=== PATIENT | female | born 1930 | race Caucasian/White ===

== ENCOUNTER 2017-04-02 04:19 | Inpatient (IN) | payer OTHER, MEDICARE ==
[2017-04-02] VITALS (9 sets, daily range): BP systolic 128–170; BP diastolic 62–86; PULSE 67–107; RESP 18–26; TEMP 97.6–98.8; O2SAT 94–99
[~2017-04-02] VITALS: Ht 154.9 cm; Wt 76.8 kg
[~2017-04-02 04:19] MED LIST: ENAL10TA7 PO; LEVO100T4 PO; MACR100C PO; ZOCO40TA PO
[2017-04-02] MEDS ORDERED: SODIUM CHLOR 0.9% 1000 ML INJ 1,000 ML IV SCH (04:23)
[2017-04-02] MEDS ORDERED: ENAL20TA PO (04:29)
[2017-04-02] MEDS ORDERED: LEVO112T2 PO (04:29)
[2017-04-02] MEDS ORDERED: SIMV40TA PO (04:29)
[2017-04-02] MEDS ORDERED: SODIUM CHLORIDE 0.9% FLUSH 10 ML FLUSH IV FLUSH PRN (04:30)
[2017-04-02] MEDS ORDERED: ONDANSETRON HCL 4 MG/2 ML VIAL IVP ONE (04:30)
[2017-04-02] MEDS ORDERED: MORPHINE SULFATE 8 MG/ML INJ IV PUSH ONE (04:30)
[2017-04-02 04:56] LABS: AUTOMATED NEUTROPHIL # 11.1 TH/MM3 (1.8-7.7); BASOPHIL # 0.1 TH/MM3 (0-0.2); BASOPHIL % 0.6 % (0.0-2.0); EOSINOPHIL # 0.1 TH/MM3 (0-0.4); EOSINOPHIL % 0.9 % (0.0-4.0); HEMATOCRIT 43.3 % (35.0-46.0); HEMO FLAGS DIFF FINAL; LYMPH % 23.5 % (9.0-44.0); LYMPHOCYTE # 3.7 TH/MM3 (1.0-4.8); MEAN CELL VOLUME 85.8 FL (80.0-100.0); MEAN CORPUSCULAR HEMOGLOBIN 28.1 PG (27.0-34.0); MEAN CORPUSCULAR HGB CONC 32.8 % (32.0-36.0); MONO % 4.3 % (0.0-8.0); NEUT % 70.7 % (16.0-70.0); PLATELET COUNT 235 TH/MM3 (150-450); RED BLOOD COUNT 5.05 MIL/MM3 (4.00-5.30); RED CELL DISTRIBUTION WIDTH 13.2 % (11.6-17.2); WHITE BLOOD COUNT 15.7 TH/MM3 (4.0-11.0)
[2017-04-02 04:59] LABS: BACTERIA, URINE RARE /hpf; BLOOD, URINE TRACE (NEG); COMMENT (UR) CATH-CULTURE IND; CULTURE IF INDICATED CATH CULTURE IND; GLUCOSE,URINE NEG (NEG); HYALINE CAST, URINE 115 /lpf (RARE); KETONE, URINE NEG (NEG); MUCUS URINE FEW /lpf (OCC); NITRITE,URINE NEG (NEG); URINE COLOR YELLOW (YELLW/STRAW)
[2017-04-02] MEDS ORDERED: HYDROmorphone HCL PF 1 MG/ML VIAL IV PUSH ONE (05:00)
[2017-04-02 05:10] LABS: ALT (GPT) 20 U/L (10-53); ANION GAP 12 MEQ/L (5-15); AST (GOT) 14 U/L (15-37); BICARBONATE 26.3 MEQ/L (21.0-32.0); BLOOD UREA NITROGEN 20 MG/DL (7-18); CHLORIDE 103 MEQ/L (98-107); GLOMERULAR FILTRATION RATE 54 ML/MIN (>89); POTASSIUM 3.5 MEQ/L (3.5-5.1); SODIUM (NA) 141 MEQ/L (136-145)
[2017-04-02 05:12] LABS: ALKALINE PHOSPHATASE 88 U/L (45-117); TOTAL BILIRUBIN ADULT 0.4 MG/DL (0.2-1.0)
--- NOTE | 2017-04-02 05:17 | PD ---
HPI Chief Complaint: Abdominal Pain Time Seen by Provider: 04:23 Travel History International Travel<30 days: No Contact w/Intl Traveler<30days: No Traveled to known affect area: No History of Present Illness HPI 86-year-old female arrives by EMS complaining of sudden onset abdominal pain. It woke her from sleep. Location lower abdomen. Nausea reported. No vomiting. No fever. It is worse with palpation. No radiation. No similar prior episodes. PFSH Past Medical History Cardiovascular Problems: Yes (HIGH BP) High Cholesterol: Yes Diminished Hearing: Yes Hypertension: Yes Thyroid Disease: Yes Past Surgical History Appendectomy: Yes Genitourinary Surgery: Yes (URETHRA/BLADDER) Hysterectomy: Yes Social History Alcohol Use: Yes (occ) Tobacco Use: No Substance Use: No Allergies-Medications (Allergen,Severity, Reaction): Coded Allergies: atropine (Unverified Allergy, Mild, 04/02/17) cephalexin (Unverified Allergy, Mild, 04/02/17) penicillin G (Unverified Allergy, Mild, 04/02/17) Uncoded Allergies: ANTISPASMODICS (Allergy, Mild, 09/19/06) PROBANATHINE (Allergy, Mild, 09/19/06) Reported Meds & Prescriptions Reported Meds & Active Scripts Active Reported Levothyroxine (Levothyroxine Sodium) 112 Mcg Tab 112 Mcg PO DAILY Simvastatin 40 Mg Tab 40 Mg PO HS Enalapril (Enalapril Maleate) 20 Mg Tab 20 Mg PO BID Review of Systems Except as stated in HPI: all other systems reviewed are Neg General / Constitutional: No: Fever Physical Exam Narrative GENERAL: 86-year-old female pleasant well-nourished well-developed SKIN: Warm and dry. HEAD: Atraumatic. Normocephalic. EYES: Pupils equal and round. No scleral icterus. No injection or drainage. ENT: No nasal bleeding or discharge. Mucous membranes pink and moist. NECK: Trachea midline. No JVD. CARDIOVASCULAR: Regular rate and rhythm. RESPIRATORY: No accessory muscle use. Clear to auscultation. Breath sounds equal bilaterally. GASTROINTESTINAL: Soft. Tenderness palpation lower abdomen. No flank tenderness. MUSCULOSKELETAL: Extremities without clubbing, cyanosis, or edema. No obvious deformities. NEUROLOGICAL: Awake and alert. No obvious cranial nerve deficits. Motor grossly within normal limits. Five out of 5 muscle strength in the arms and legs. Normal speech. PSYCHIATRIC: Appropriate mood and affect; insight and judgment normal. Data Data Last Documented VS Vital Signs Date Time Temp Pulse Resp B/P (MAP) Pulse Ox O2 Delivery O2 Flow Rate FiO2 04/02/17 04:27 99 Nasal Cannula 2.00 04/02/17 04:22 97.6 67 26 165/77 (106) VS reviewed Orders Orders Complete Blood Count With Diff (04/02/17 04:23) Comprehensive Metabolic Panel (04/02/17 04:23) Lipase (04/02/17 04:23) Urinalysis - C+S If Indicated (04/02/17 04:23) Ct Abd/Pel W Iv Contrast(Rout) (04/02/17 04:23) Iv Access Insert/Monitor (04/02/17 04:23) Ecg Monitoring (04/02/17 04:23) Oximetry (04/02/17 04:23) Ondansetron Inj (Zofran Inj) (04/02/17 04:30) Sodium Chlor 0.9% 1000 Ml Inj (Ns 1000 M (04/02/17 04:23) Sodium Chloride 0.9% Flush (Ns Flush) (04/02/17 04:30) Morphine Inj (Morphine Inj) (04/02/17 04:30) Hydromorphone Pf Inj (Dilaudid Pf Inj) (04/02/17 05:00) Urine Culture (04/02/17 04:30) Iohexol 350 Inj (Omnipaque 350 Inj) (04/02/17 05:29) Levofloxacin 750 Mg Premix Inj (Levaquin (04/02/17 06:15) Ciprofloxacin 400 Mg Premix (Cipro 400 M (04/02/17 06:15) Metronidazole 500 Mg Inj (Flagyl 500 Mg (04/02/17 06:15) Admit Order (Ed Use Only) (04/02/17 06:16) Labs Laboratory Tests Test 04/02/17 04:30 White Blood Count 15.7 TH/MM3 Red Blood Count 5.05 MIL/MM3 Hemoglobin 14.2 GM/DL Hematocrit 43.3 % Mean Corpuscular Volume 85.8 FL Mean Corpuscular Hemoglobin 28.1 PG Mean Corpuscular Hemoglobin Concent 32.8 % Red Cell Distribution Width 13.2 % Platelet Count 235 TH/MM3 Mean Platelet Volume 9.2 FL Neutrophils (%) (Auto) 70.7 % Lymphocytes (%) (Auto) 23.5 % Monocytes (%) (Auto) 4.3 % Eosinophils (%) (Auto) 0.9 % Basophils (%) (Auto) 0.6 % Neutrophils # (Auto) 11.1 TH/MM3 Lymphocytes # (Auto) 3.7 TH/MM3 Monocytes # (Auto) 0.7 TH/MM3 Eosinophils # (Auto) 0.1 TH/MM3 Basophils # (Auto) 0.1 TH/MM3 CBC Comment DIFF FINAL Differential Comment Urine Color YELLOW Urine Turbidity HAZY Urine pH 5.0 Urine Specific [place] 1.025 Urine Protein TRACE mg/dL Urine Glucose (UA) NEG mg/dL Urine Ketones NEG mg/dL Urine Occult Blood TRACE Urine Nitrite NEG Urine Bilirubin NEG Urine Urobilinogen LESS THAN 2.0 MG/DL Urine Leukocyte Esterase NEG Urine RBC 2 /hpf Urine WBC 1 /hpf Urine Bacteria RARE /hpf Urine Hyaline Casts 115 /lpf Urine Mucus FEW /lpf Microscopic Urinalysis Comment CATH-CULTURE IND Blood Urea Nitrogen 20 MG/DL Creatinine 0.98 MG/DL Random Glucose 199 MG/DL Total Protein 7.0 GM/DL Albumin 3.9 GM/DL Calcium Level 9.7 MG/DL Alkaline Phosphatase 88 U/L Aspartate Amino Transf (AST/SGOT) 14 U/L Alanine Aminotransferase (ALT/SGPT) 20 U/L Total Bilirubin 0.4 MG/DL Sodium Level 141 MEQ/L Potassium Level 3.5 MEQ/L Chloride Level 103 MEQ/L Carbon Dioxide Level 26.3 MEQ/L Anion Gap 12 MEQ/L Estimat Glomerular Filtration Rate 54 ML/MIN Lipase 139 U/L [facility] Medical Decision Making Medical Screen Exam Complete: Yes Emergency Medical Condition: Yes Differential Diagnosis Constipation, Gastritis, Acute Cholecystitis, Biliary Colic, Pancreatitis, COATS , Hepatitis, Bowel Obstruction, Cystitis, Mesenteric Ischemia, AAA, Appendicitis , Renal Stone/Hydronephrosis, GERD, perforated viscous Narrative Course CBC & BMP Diagram 04/02/17 04:30 Total Protein 7.0, Albumin 3.9, Calcium Level 9.7, Alkaline Phosphatase 88, Aspartate Amino Transf (AST/SGOT) 14 L, Alanine Aminotransferase (ALT/SGPT) 20, Total Bilirubin 0.4 UA: rare bacteria Last 24 hours Impressions Abdomen/Pelvis CT 04/02/17 0423 Signed Impressions: Service Date/Time: Sunday, April 02, 2017 05:28 - CONCLUSION: Several abnormally thickened loops of small bowel in the right lower quadrant with fat stranding and small amount of free fluid. Differential diagnosis includes enteritis from infection, inflammatory bowel disease or ischemia. No free air. Efra Martin MD Admission for enteritis, D/w Dr Villarreal. Diagnosis Primary Impression: Enteritis Admitting Information Admitting Physician Requests: Admit Siva Anders MD Apr 02, 2017 05:17
[2017-04-02] MEDS ORDERED: IOHEXOL 350 MG/ML 10 ML VIAL (for RAD DIAG) IVCONTRAST ONE (05:29)
--- NOTE | 2017-04-02 06:05 | RADRPT ---
EXAM DATE/TIME: 04/02/2017 05:28 [place] COMPARISON: No previous studies available for comparison. INDICATIONS : Diffuse abdominal pain and nausea. IV CONTRAST: 95 cc Omnipaque 350 (iohexol) IV ORAL CONTRAST: No oral contrast ingested. RADIATION DOSE: 9.26 CTDIvol (mGy) MEDICAL HISTORY : Hypertension. SURGICAL HISTORY : Appendectomy. Hysterectomy. ENCOUNTER: Initial ACUITY: 1 day PAIN SCALE: 8/10 LOCATION: Bilateral abdomen TECHNIQUE: Volumetric scanning of the abdomen and pelvis was performed. Using automated exposure control and ad justment of the mA and/or kV according to patient size, radiation dose was kept as low as reasonably achievable to obtain optimal diagnostic quality images. DICOM format image data is available electro nically for review and comparison. FINDINGS: Lung bases are clear. There are several abnormally thickened loops of small bowel in the right lower quadrant with periente sandy stranding of fat and small amount of free fluid in the lower abdomen and pelvis. Findings are non specific. Differential diagnosis includes enteritis, from infection or inflammatory bowel disease or ischemia. Liver unremarkable except for tiny cyst anteriorly. Spleen, adrenals, kidneys and pancreas demonstrat e no acute findings. No calcified gallstones or biliary ductal dilatation. No acute bony abnormalitie s. CONCLUSION: Several abnormally thickened loops of small bowel in the right lower quadrant with fat stranding and small amount of free fluid. Differential diagnosis includes enteritis from infection, inflammatory flako wel disease or ischemia. No free air. Efra Martin MD on April 02, 2017 at 5:43 Board Certified Radiologist. This report was verified electronically.
[2017-04-02] MEDS ORDERED: metroNIDAZOLE 500 MG INJ 100 ML IV ONE (06:15)
[2017-04-02] MEDS ORDERED: LEVOFLOXACIN 750 MG PREMIX INJ 150 ML IV ONE (06:15)
[2017-04-02] MEDS ORDERED: CIPROFLOXACIN 400 MG PREMIX 200 ML IV ONE (06:15)
[2017-04-02] MEDS: SODIUM CHLOR 0.9% 1000 ML INJ 1,000 ML IV SCH ×2 (06:29→16:20)
[2017-04-02] MEDS ORDERED: MAGNESIUM HYDROXIDE SUSP 30 ML CUP PO PRN (06:30)
[2017-04-02] MEDS ORDERED: LACTULOSE SYRUP 20 GM/30 ML CUP PO PRN (06:30)
[2017-04-02] MEDS ORDERED: SENNOSIDES 8.6 MG TAB PO PRN (06:30)
[2017-04-02] MEDS ORDERED: BISACODYL 10 MG SUPP RECTAL PRN (06:30)
[2017-04-02] MEDS ORDERED: ACETAMINOPHEN 325 MG TAB PO PRN (06:30)
[2017-04-02] MEDS: SODIUM CHLORIDE 0.9% FLUSH 10 ML FLUSH IV FLUSH SCH ×2 (09:00→21:00)
[2017-04-02] MEDS: DOCUSATE SODIUM 50 MG/SENNA 8.6 MG TAB PO SCH ×2 (09:00→21:20)
[2017-04-02] MEDS: ONDANSETRON HCL 4 MG/2 ML VIAL IVP PRN ×2 (12:04→18:00)
[2017-04-02] MEDS: metroNIDAZOLE 500 MG INJ 100 ML IV SCH ×2 (14:08→22:45)
--- NOTE | 2017-04-02 14:21 | HHI.HP ---
HPI Service [facility] Hospitalists Primary Care Physician Unknown Admission Diagnosis Enteritis Diagnoses: Chief Complaint: Abdominal pain Nausea Travel History International Travel<30 Days: No Contact w/Intl Traveler <30 Da: No Traveled to Known Affected Are: No History of Present Illness Written by Leny Mckeon PA-C acting as scribe for Dr. Franklin on 04/02/17 at 14 :13. This is an 86 yo female with PMHX significant for HTN, HLD, Hypothyroidism and Glaucoma who presents to [facility] ED with complaints of sudden onset of severe "20/10" abdominal pain with associated nausea for 1 day. Patient reports eating "junk food" all day yesterday and waking up at 1:30am with her "stomach on fire" that continued to progress prompting her to come into the ED. She tried taking some Tums and Excedrin at home without any benefit. She denies any vomiting but states she was gagging a lot. She denies any fever or chills. She denies any chest pain or shortness of breath. She denies any diarrhea or constipation. She reports prior colonoscopy 12 years ago with polypectomy x 2. She was started on Cipro and Metronidazole in the ED. She reports her abdominal pain is 2/10 now. She has not had any appetite. She denies any dysuria but reports frequent incontinence. In the ED, CT abd/pelvis obtained in the ED showed several abnormally thickened loops of small bowel in the right lower quadrant with fat stranding and small amount of free fluid. She is afebrile. Her white count was elevated at 15.7. UA is suggestive of a urinary tract infection. LFTs and lipase within normal limits. Review of Systems Except as stated in HPI: all other systems reviewed are Neg Past Family Social History Past Medical History Hypertension HLD Hypothyroidism Glaucoma Past Surgical History Appendectomy Removal of urethral "node" Hysterectomy Benign breast bx x 2 Reported Medications Levothyroxine (Levothyroxine Sodium) 112 Mcg Tab 112 Mcg PO DAILY Simvastatin 40 Mg Tab 40 Mg PO HS Enalapril (Enalapril Maleate) 20 Mg Tab 20 Mg PO BID Allergies: Coded Allergies: atropine (Unverified Allergy, Mild, 04/02/17) cephalexin (Unverified Allergy, Mild, 04/02/17) penicillin G (Unverified Allergy, Mild, 04/02/17) Uncoded Allergies: ANTISPASMODICS (Allergy, Mild, 09/19/06) PROBANATHINE (Allergy, Mild, 09/19/06) Active Ordered Medications Current Medications Medications (Trade) Dose Ordered Sig/Aditi Route Start Time Stop Time Status Last Admin Ciprofloxacin/ Dextrose 200 ml @ 200 mls/hr Q12H IV 04/02/17 18:00 Metronidazole 100 ml @ 100 mls/hr Q8H IV 04/02/17 14:00 04/02/17 14:08 Sodium Chloride 1,000 ml @ 100 mls/hr Q10H IV 04/02/17 06:20 04/02/17 06:29 (NS Flush) 2 ml UNSCH PRN IV FLUSH 04/02/17 06:30 (NS Flush) 2 ml BID IV FLUSH 04/02/17 09:00 04/02/17 09:00 (Zofran Inj) 4 mg Q6H PRN IVP 04/02/17 06:30 04/02/17 12:04 (Tylenol) 650 mg Q6H PRN PO 04/02/17 06:30 (Morphine Inj) 2 mg Q3H PRN IV 04/02/17 06:30 (Roxicodone) 5 mg Q4H PRN PO 04/02/17 06:30 04/02/17 09:40 (Gunjan-Colace) 1 tab BID PO 04/02/17 09:00 (Milk Of Magnesia Liq) 30 ml Q12H PRN PO 04/02/17 06:30 (Senokot) 17.2 mg Q12H PRN PO 04/02/17 06:30 (Dulcolax Supp) 10 mg DAILY PRN RECTAL 04/02/17 06:30 (Lactulose Liq) 30 ml DAILY PRN PO 04/02/17 06:30 Family History Father, CVA, DM, CAD Mother, CVA Social History Patient denies any tobacco use, lifelong nonsmoker. She reports rare EtOH consumption. She denies any illicit drug use. She lives alone and takes care of all of her own ADLs. Physical Exam Vital Signs Vital Signs Date Time Temp Pulse Resp B/P (MAP) Pulse Ox O2 Delivery O2 Flow Rate FiO2 04/02/17 13:12 97.9 89 18 170/70 (103) 97 04/02/17 08:28 84 20 136/86 (103) 96 04/02/17 08:00 97.8 107 18 164/78 (106) 96 04/02/17 07:32 88 18 128/62 (84) 94 Room Air 04/02/17 06:28 76 18 164/75 (104) 96 Room Air 04/02/17 04:27 99 Nasal Cannula 2.00 04/02/17 04:22 97.6 67 26 165/77 (106) 99 Physical Exam GENERAL: This is a well-nourished, well-developed patient, in no apparent distress. Awake and alert. SKIN: No rashes, ecchymoses or lesions. Cool and dry. HEAD: Atraumatic. Normocephalic. No temporal or scalp tenderness. EYES: Pupils equal round and reactive. Extraocular motions intact. No scleral icterus. No injection or drainage. ENT: Nose without drainage. Throat without erythema, tonsillar hypertrophy or exudate. Uvula midline. Airway patent. NECK: Trachea midline. No lymphadenopathy. Supple, nontender, no meningeal signs. CARDIOVASCULAR: Regular rate and rhythm without murmurs RESPIRATORY: Clear to auscultation. Breath sounds equal bilaterally. No wheezes GASTROINTESTINAL: Abdomen soft, nondistended. (+)tenderness to palpation over right lower quadrant and left upper quadrant. No guarding. No rigidity. MUSCULOSKELETAL: Extremities without edema. No calf tenderness. NEUROLOGICAL: Awake and alert. Able to move all extremities. Motor and sensory function grossly intact. Normal speech. Laboratory Laboratory Tests Test 04/02/17 04:30 White Blood Count 15.7 Red Blood Count 5.05 Hemoglobin 14.2 Hematocrit 43.3 Mean Corpuscular Volume 85.8 Mean Corpuscular Hemoglobin 28.1 Mean Corpuscular Hemoglobin Concent 32.8 Red Cell Distribution Width 13.2 Platelet Count 235 Mean Platelet Volume 9.2 Neutrophils (%) (Auto) 70.7 Lymphocytes (%) (Auto) 23.5 Monocytes (%) (Auto) 4.3 Eosinophils (%) (Auto) 0.9 Basophils (%) (Auto) 0.6 Neutrophils # (Auto) 11.1 Lymphocytes # (Auto) 3.7 Monocytes # (Auto) 0.7 Eosinophils # (Auto) 0.1 Basophils # (Auto) 0.1 CBC Comment DIFF FINAL Differential Comment Urine Color YELLOW Urine Turbidity HAZY Urine pH 5.0 Urine Specific [place] 1.025 Urine Protein TRACE Urine Glucose (UA) NEG Urine Ketones NEG Urine Occult Blood TRACE Urine Nitrite NEG Urine Bilirubin NEG Urine Urobilinogen LESS THAN 2.0 Urine Leukocyte Esterase NEG Urine RBC 2 Urine WBC 1 Urine Bacteria RARE Urine Hyaline Casts 115 Urine Mucus FEW Microscopic Urinalysis Comment CATH-CULTURE IND Blood Urea Nitrogen 20 Creatinine 0.98 Random Glucose 199 Total Protein 7.0 Albumin 3.9 Calcium Level 9.7 Alkaline Phosphatase 88 Aspartate Amino Transf (AST/SGOT) 14 Alanine Aminotransferase (ALT/SGPT) 20 Total Bilirubin 0.4 Sodium Level 141 Potassium Level 3.5 Chloride Level 103 Carbon Dioxide Level 26.3 Anion Gap 12 Estimat Glomerular Filtration Rate 54 Lipase 139 Date/Time Source Procedure Growth Status 04/02/17 04:30 Urine Catheterized Urine Urine Culture Pending Received Result Diagram: 04/02/17 0430 04/02/17 0430 Imaging Last Impressions Abdomen/Pelvis CT 04/02/17 0423 Signed Impressions: Service Date/Time: Sunday, April 02, 2017 05:28 - CONCLUSION: Several abnormally thickened loops of small bowel in the right lower quadrant with fat stranding and small amount of free fluid. Differential diagnosis includes enteritis from infection, inflammatory bowel disease or ischemia. No free air. Efra Martin MD Caprini VTE Risk Assessment Caprini VTE Risk Assessment: Mod/High Risk (score >= 2) Caprini Risk Assessment Model Point Value = 1 Point Value = 2 Point Value = 3 Point Value = 5 Age 41-60 Minor surgery BMI > 25 kg/m2 Swollen legs Varicose veins or History of unexplained or recurrent spontaneous Oral contraceptives or hormone replacement Sepsis (< 1 month) Serious lung disease, including pneumonia (< 1 month) Abnormal pulmonary function Acute myocardial infarction Congestive heart failure (< 1 month) History of inflammatory bowel disease Medical patient at bed rest Age 61-74 Arthroscopic surgery Major open surgery (> 45 min) Laparoscopic surgery (> 45 min) Malignancy Confined to bed (> 72 hours) Immobilizing plaster cast Central venous access Age >= 75 History of VTE Family history of VTE Factor V Leiden Prothrombin [id number] Lupus anticoagulant Anticardiolipin antibodies Elevated serum homocysteine Heparin-induced thrombocytopenia Other congenital or acquired thrombophilia Stroke (< 1 month) Elective arthroplasty Hip, pelvis, or leg fracture Acute spinal cord injury (< 1 month) Prophylaxis Regimen Total Risk Factor Score Risk Level Prophylaxis Regimen 0-1 Low Early ambulation 2 Moderate Order ONE of the following: *Sequential Compression Device (SCD) *Heparin 5000 units SQ BID 3-4 Higher Order ONE of the following medications: *Heparin 5000 units SQ TID *Enoxaparin/Lovenox 40 mg SQ daily (WT < 150 kg, CrCl > 30 mL/min) *Enoxaparin/Lovenox 30 mg SQ daily (WT < 150 kg, CrCl > 10-29 mL/min) *Enoxaparin/Lovenox 30 mg SQ BID (WT < 150 kg, CrCl > 30 mL/min) AND/OR *Sequential Compression Device (SCD) 5 or more Highest Order ONE of the following medications: *Heparin 5000 units SQ TID (Preferred with Epidurals) *Enoxaparin/Lovenox 40 mg SQ daily (WT < 150 kg, CrCl > 30 mL/min) *Enoxaparin/Lovenox 30 mg SQ daily (WT < 150 kg, CrCl > 10-29 mL/min) *Enoxaparin/Lovenox 30 mg SQ BID (WT < 150 kg, CrCl > 30 mL/min) AND *Sequential Compression Device (SCD) Assessment and Plan Assessment and Plan 86 yo female with PMHX significant for HTN, HLD, Hypothyroidism and Glaucoma who presents to [facility] ED with complaints of severe "20/10" abdominal pain with associated nausea 1 day. Enteritis - Uncertain etiology - CT abd/pelvis revealed several abnormally thickened loops of small bowel in the right lower quadrant with fat stranding and small amount of free fluid - Patient is afebrile. White count is elevated at 15.7. LFTs and lipase are within normal limits. - Consult GI - Continue on IV Cipro and Metronidazole - Continue pain management - Trial regular diet - Zofran prn nausea UTI - UA suggestive of urinary tract infection - Patient denies any dysuria but admits to incontinence - Currently on IV Cipro - Follow up on final urine culture results Leukocytosis - Secondary to above - On IV antibiotics - Repeat labs in a.m. to monitor trend Hyperglycemia - No reported history of diabetes - Obtain hemoglobin A1c Hypertension - elevated - Resume patient's home dose of Enalapril 20 mg twice a day - hydralazine and vasotec prn Hypothyroidism - Resume patient's home dose of levothyroxine 112 mcg daily - Check TSH level. Dyslipidemia - Resume patient's home dose of simvastatin 40 mg daily DVT prophylaxis - Bilateral SCD/MARYBEL hose This note was transcribed by sushil Mckeon. I, Dr. Salome Franklin personally performed the history, physical exam, and medical decision making; and confirmed the accuracy of the information in the transcribed note. Authenticated by Dr. Salome Franklin on 04/02/17 at 14:13. Discussed Condition With Patient Physician Certification 2 Midnight Certification Type: Admission for Inpatient Services Order for Inpatient Services The services are ordered in accordance with Medicare regulations or non- Medicare payer requirements, as applicable. In the case of services not specified as inpatient-only, they are appropriately provided as inpatient services in accordance with the 2-midnight benchmark. Estimated LOS (days): 2 2 days is the estimated time the patient will need to remain in the hospital, assuming treatment plan goals are met and no additional complications. Post-Hospital Plan: Not yet determined Leny Mckeon Apr 02, 2017 14:21 Salome Franklin MD Apr 02, 2017 16:42
[2017-04-02] MEDS ORDERED: hydrALAZINE HCL 10 MG TAB PO PRN (14:45)
[2017-04-02] MEDS ORDERED: DOCUSATE SODIUM 50 MG/SENNA 8.6 MG TAB PO PRN (14:45)
[2017-04-02] MEDS: ENALAPRIL MALEATE 10 MG TAB PO SCH ×2 (16:21→21:19)
[2017-04-02] MEDS: CIPROFLOXACIN 400 MG PREMIX 200 ML IV SCH (18:47)
--- NOTE | 2017-04-02 20:12 | PD.CONS ---
HPI History of Present Illness This is a 86 year old female patient who had sudden onset of excruciating pain in the lower abdomen and generalized quickly. The pain awakened her from sleep. At first she thought it was heartburn and took tums without relief. She also took some excedrin without relief. She came to the ED after a few hours because the pain was so severe. Pain meds improved her symptoms. The pain is still present now but less so. She has had recurrent vomiting today when she tried to eat. Denies prior similar pains. She denies any blood in stool recently but has had hemorrhoids and passed a little blood from time to time. She had colonoscopy 12 years ago and at that time had a few polyps. She reports having constipation and she has diverticulosis. Does not take laxatives regularly. ROS: No fever, chest pain, SOB, rash. No arm or leg pain. Otherwise complete ros is neg. PFSH Past Medical History Hypertension HLD Hypothyroidism Glaucoma Past Surgical History Appendectomy Removal of urethral "node" Hysterectomy Benign breast bx x 2 Coded Allergies: atropine (Unverified Allergy, Mild, 04/02/17) cephalexin (Unverified Allergy, Mild, 04/02/17) penicillin G (Unverified Allergy, Mild, 04/02/17) Uncoded Allergies: ANTISPASMODICS (Allergy, Mild, 09/19/06) PROBANATHINE (Allergy, Mild, 09/19/06) Medications Current Medications Medications (Trade) Dose Ordered Sig/Aditi Route Start Time Stop Time Status Last Admin Ciprofloxacin/ Dextrose 200 ml @ 200 mls/hr Q12H IV 04/02/17 18:00 04/02/17 18:47 Metronidazole 100 ml @ 100 mls/hr Q8H IV 04/02/17 14:00 04/02/17 14:08 Sodium Chloride 1,000 ml @ 100 mls/hr Q10H IV 04/02/17 06:20 04/02/17 16:20 (NS Flush) 2 ml UNSCH PRN IV FLUSH 04/02/17 06:30 (NS Flush) 2 ml BID IV FLUSH 04/02/17 09:00 04/02/17 09:00 (Zofran Inj) 4 mg Q6H PRN IVP 04/02/17 06:30 04/02/17 18:00 (Tylenol) 650 mg Q6H PRN PO 04/02/17 06:30 (Morphine Inj) 2 mg Q3H PRN IV 04/02/17 06:30 (Roxicodone) 5 mg Q4H PRN PO 04/02/17 06:30 04/02/17 18:47 (Gunjan-Colace) 1 tab BID PO 04/02/17 09:00 (Milk Of Magnesia Liq) 30 ml Q12H PRN PO 04/02/17 06:30 (Senokot) 17.2 mg Q12H PRN PO 04/02/17 06:30 (Dulcolax Supp) 10 mg DAILY PRN RECTAL 04/02/17 06:30 (Lactulose Liq) 30 ml DAILY PRN PO 04/02/17 06:30 (Vasotec) 20 mg BID PO 04/02/17 14:45 04/02/17 16:21 (Synthroid) 112 mcg DAILY@0600 PO 04/03/17 06:00 (Pravachol) 80 mg HS PO 04/02/17 21:00 (Vasotec Inj) 1.25 mg Q6H PRN IV PUSH 04/02/17 14:45 (Apresoline) 10 mg Q6HR PRN PO 04/02/17 14:45 ([place] 5-325 Mg) 1 tab Q4H PRN PO 04/02/17 14:45 ([place] 7.5-325 Mg) 1 tab Q6H PRN PO 04/02/17 14:45 (Gunjan-Colace) 1 tab BID PRN PO 04/02/17 14:45 (Miralax) 17 gm DAILY PO 04/03/17 09:00 Family History Father, CVA, DM, CAD Mother, CVA Social History Patient denies any tobacco use, lifelong nonsmoker. She reports rare EtOH consumption. She denies any illicit drug use. She lives alone and takes care of all of her own ADLs. GI Exam Vitals I&O Vital Signs Date Time Temp Pulse Resp B/P (MAP) Pulse Ox O2 Delivery O2 Flow Rate FiO2 04/02/17 16:00 98.0 76 18 146/72 (96) 97 04/02/17 13:12 97.9 89 18 170/70 (103) 97 04/02/17 08:28 84 20 136/86 (103) 96 9/3/17 08:00 97.8 107 18 164/78 (106) 96 04/02/17 07:32 88 18 128/62 (84) 94 Room Air 04/02/17 06:28 76 18 164/75 (104) 96 Room Air 04/02/17 04:27 99 Nasal Cannula 2.00 04/02/17 04:22 97.6 67 26 165/77 (106) 99 I/O 04/01/17 04/01/17 04/01/17 04/02/17 04/02/17 04/02/17 06:59 14:59 22:59 06:59 14:59 22:59 Intake Total 1000 ml 100 ml 480 ml Balance 1000 ml 100 ml 480 ml Intake Oral 480 ml IV Total 1000 ml 100 ml # Voids 3 # Bowel Movements 0 Imaging I reviewed the CT scan images, there are abnormal loops of small intestine in the lower abdomen with small amount of fluid in the pelvis. There is no apparent obstruction. Laboratory Test 04/02/17 04:30 White Blood Count 15.7 TH/MM3 Red Blood Count 5.05 MIL/MM3 Hemoglobin 14.2 GM/DL Hematocrit 43.3 % Mean Corpuscular Volume 85.8 FL Mean Corpuscular Hemoglobin 28.1 PG Mean Corpuscular Hemoglobin Concent 32.8 % Red Cell Distribution Width 13.2 % Platelet Count 235 TH/MM3 Mean Platelet Volume 9.2 FL Neutrophils (%) (Auto) 70.7 % Lymphocytes (%) (Auto) 23.5 % Monocytes (%) (Auto) 4.3 % Eosinophils (%) (Auto) 0.9 % Basophils (%) (Auto) 0.6 % Neutrophils # (Auto) 11.1 TH/MM3 Lymphocytes # (Auto) 3.7 TH/MM3 Monocytes # (Auto) 0.7 TH/MM3 Eosinophils # (Auto) 0.1 TH/MM3 Basophils # (Auto) 0.1 TH/MM3 CBC Comment DIFF FINAL Differential Comment Urine Color YELLOW Urine Turbidity HAZY Urine pH 5.0 Urine Specific [place] 1.025 Urine Protein TRACE mg/dL Urine Glucose (UA) NEG mg/dL Urine Ketones NEG mg/dL Urine Occult Blood TRACE Urine Nitrite NEG Urine Bilirubin NEG Urine Urobilinogen LESS THAN 2.0 MG/DL Urine Leukocyte Esterase NEG Urine RBC 2 /hpf Urine WBC 1 /hpf Urine Bacteria RARE /hpf Urine Hyaline Casts 115 /lpf Urine Mucus FEW /lpf Microscopic Urinalysis Comment CATH-CULTURE IND Blood Urea Nitrogen 20 MG/DL Creatinine 0.98 MG/DL Random Glucose 199 MG/DL Total Protein 7.0 GM/DL Albumin 3.9 GM/DL Calcium Level 9.7 MG/DL Alkaline Phosphatase 88 U/L Aspartate Amino Transf (AST/SGOT) 14 U/L Alanine Aminotransferase (ALT/SGPT) 20 U/L Total Bilirubin 0.4 MG/DL Sodium Level 141 MEQ/L Potassium Level 3.5 MEQ/L Chloride Level 103 MEQ/L Carbon Dioxide Level 26.3 MEQ/L Anion Gap 12 MEQ/L Estimat Glomerular Filtration Rate 54 ML/MIN Lipase 139 U/L Date/Time Source Procedure Growth Status 04/02/17 04:30 Urine Catheterized Urine Urine Culture Pending Received Physical Examination HEENT: Pupils round and reactive to light; normocephalic; atraumatic; no jaundice. Throat is clear. NECK: Neck is supple, no JVD, no lymphadenopathy. CHEST: Chest is clear to auscultation and percussion. CARDIAC: Regular rate and rhythm with no murmur gallop or rubs. ABDOMEN: Soft, nondistended, mildly tender; no guarding. no hepatosplenomegaly ; bowel sounds are present EXTREMITIES: No clubbing, cyanosis, or edema. SKIN: Normal; no rash; no jaundice. 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 Assessment and Plan Plan Impression: Sudden onset of severe pain suggests ischemia. - Constipation can also cause severe pain but not so long in duration - infection is possible but small bowel infection should cause diarrhea Plan: - Lactate level - D Dimer - If positive patient will need anticoagulation, possible arteriogram. - if negative, patient may need colonscopy in 2 days. - Pain control and hydration. - NPO or clear liquids only. Rad Wharton MD Apr 02, 2017 20:12
[2017-04-02] MEDS: PRAVASTATIN SOD 80 MG TAB PO SCH (21:20)
[2017-04-02] MEDS: HEPARIN SODIUM - SQ 10,000 UNITS/ML VIAL SQ SCH (23:49)
[2017-04-03] MEDS: ACETAMINOPHEN/HYDROcodone 325 MG/5 MG TAB PO PRN ×2 (00:52→05:22)
[2017-04-03] MEDS: SODIUM CHLORIDE 0.9% FLUSH 10 ML FLUSH IV FLUSH PRN ×2 (00:53→21:15)
[2017-04-03] MEDS: ONDANSETRON HCL 4 MG/2 ML VIAL IVP PRN ×3 (00:53→21:15)
[2017-04-03 00:57] VITALS: BP 146/67; PULSE 93; RESP 20; TEMP 98.6; O2SAT 94
[2017-04-03] MEDS: CIPROFLOXACIN 400 MG PREMIX 200 ML IV SCH ×2 (04:46→18:25)
[2017-04-03] MEDS: SODIUM CHLOR 0.9% 1000 ML INJ 1,000 ML IV SCH ×2 (04:48→12:20)
[2017-04-03 05:04] VITALS: BP 152/65; PULSE 83; RESP 20; TEMP 98.6; O2SAT 94
[2017-04-03] MEDS: LEVOTHYROXINE SODIUM 112 MCG TAB PO SCH (05:22)
[2017-04-03] MEDS: HEPARIN SODIUM - SQ 10,000 UNITS/ML VIAL SQ SCH ×3 (05:23→21:00)
[2017-04-03] MEDS: metroNIDAZOLE 500 MG INJ 100 ML IV SCH ×3 (05:24→21:01)
[2017-04-03 08:23] VITALS: BP 139/93; PULSE 80; RESP 18; TEMP 97.8; O2SAT 94
[2017-04-03] MEDS: SODIUM CHLORIDE 0.9% FLUSH 10 ML FLUSH IV FLUSH SCH ×2 (09:00→21:01)
[2017-04-03 09:02] LABS: AUTOMATED NEUTROPHIL # 12.8 TH/MM3 (1.8-7.7); BASOPHIL # 0.1 TH/MM3 (0-0.2); BASOPHIL % 0.7 % (0.0-2.0); EOSINOPHIL % 0.3 % (0.0-4.0); HEMATOCRIT 41.2 % (35.0-46.0); HEMO FLAGS DIFF FINAL; LYMPH % 10.1 % (9.0-44.0); LYMPHOCYTE # 1.6 TH/MM3 (1.0-4.8); MEAN CELL VOLUME 87.3 FL (80.0-100.0); MEAN CORPUSCULAR HEMOGLOBIN 28.8 PG (27.0-34.0); MONO % 6.6 % (0.0-8.0); NEUT % 82.3 % (16.0-70.0); PLATELET COUNT 196 TH/MM3 (150-450); RED BLOOD COUNT 4.72 MIL/MM3 (4.00-5.30); RED CELL DISTRIBUTION WIDTH 13.3 % (11.6-17.2); WHITE BLOOD COUNT 15.6 TH/MM3 (4.0-11.0)
[2017-04-03] MEDS: POLYETHYLENE GLYCOL 17 GM PKG PO SCH (09:21)
[2017-04-03] MEDS: ENALAPRIL MALEATE 10 MG TAB PO SCH ×2 (09:23→21:00)
[2017-04-03] MEDS: DOCUSATE SODIUM 50 MG/SENNA 8.6 MG TAB PO SCH ×2 (09:23→21:01)
[2017-04-03 09:33] LABS: ALKALINE PHOSPHATASE 60 U/L (45-117); ALT (GPT) 18 U/L (10-53); ANION GAP 7 MEQ/L (5-15); AST (GOT) 20 U/L (15-37); BICARBONATE 23.8 MEQ/L (21.0-32.0); BLOOD UREA NITROGEN 16 MG/DL (7-18); CHLORIDE 106 MEQ/L (98-107); GLOMERULAR FILTRATION RATE 101 ML/MIN (>89); POTASSIUM 3.7 MEQ/L (3.5-5.1); SODIUM (NA) 137 MEQ/L (136-145); TOTAL BILIRUBIN ADULT 0.4 MG/DL (0.2-1.0)
[2017-04-03 11:02] LABS: HEMOGLOBIN A1a 1.2 %; HEMOGLOBIN A1b 1.7 %; HEMOGLOBIN Ao 84.4 %; HEMOGLOBIN LA1C 2.4 %; HEMOGLOBIN P3 4.2 %
--- NOTE | 2017-04-03 11:41 | HHI.GIFU ---
Subjective Remarks Pt reports abdominal pain is improved. Not passing any stools, some flatus some nausea and vomiting. Lactic acid is normal. D Dimer is elevated. Pt on VTE prophylaxis with Sub Q heparin. Cause of pain and abnormal small bowel is uncertain. Objective Vitals I&O Vital Signs Date Time Temp Pulse Resp B/P (MAP) Pulse Ox O2 Delivery O2 Flow Rate FiO2 04/03/17 08:23 97.8 80 18 139/93 (108) 94 04/03/17 05:04 98.6 83 20 152/65 (94) 94 04/03/17 00:57 98.6 93 20 146/67 (93) 94 04/02/17 21:14 98.8 98 19 153/72 (99) 94 04/02/17 16:00 98.0 76 18 146/72 (96) 97 04/02/17 13:12 97.9 89 18 170/70 (103) 97 I/O 04/02/17 04/02/17 04/02/17 04/03/17 04/03/17 04/03/17 07:00 15:00 23:00 07:00 15:00 23:00 Intake Total 1000 ml 580 ml Balance 1000 ml 580 ml Intake Oral 480 ml IV Total 1000 ml 100 ml # Voids 3 2 # Bowel Movements 0 Laboratory Laboratory Tests Test 04/02/17 21:00 04/03/17 08:41 D-Dimer Quantitative (PE/DVT) 1.88 Lactic Acid Level 1.4 White Blood Count 15.6 Red Blood Count 4.72 Hemoglobin 13.6 Hematocrit 41.2 Mean Corpuscular Volume 87.3 Mean Corpuscular Hemoglobin 28.8 Mean Corpuscular Hemoglobin Concent 33.0 Red Cell Distribution Width 13.3 Platelet Count 196 Mean Platelet Volume 9.3 Neutrophils (%) (Auto) 82.3 Lymphocytes (%) (Auto) 10.1 Monocytes (%) (Auto) 6.6 Eosinophils (%) (Auto) 0.3 Basophils (%) (Auto) 0.7 Neutrophils # (Auto) 12.8 Lymphocytes # (Auto) 1.6 Monocytes # (Auto) 1.0 Eosinophils # (Auto) 0.0 Basophils # (Auto) 0.1 CBC Comment DIFF FINAL Differential Comment Blood Urea Nitrogen 16 Creatinine 0.57 Random Glucose 110 Total Protein 5.8 Albumin 3.0 Calcium Level 8.8 Alkaline Phosphatase 60 Aspartate Amino Transf (AST/SGOT) 20 Alanine Aminotransferase (ALT/SGPT) 18 Total Bilirubin 0.4 Sodium Level 137 Potassium Level 3.7 Chloride Level 106 Carbon Dioxide Level 23.8 Anion Gap 7 Estimat Glomerular Filtration Rate 101 Hemoglobin A1c 5.6 Date/Time Source Procedure Growth Status 04/02/17 04:30 Urine Catheterized Urine Urine Culture - Preliminary NO GROWTH IN 24 HOURS. Resulted Physical Exam HEENT: Pupils round and reactive to light; normocephalic; atraumatic; no jaundice. Throat is clear. NECK: Neck is supple, no JVD, no lymphadenopathy. CHEST: Chest is clear to auscultation and percussion. CARDIAC: Regular rate and rhythm with no murmur gallop or rubs. ABDOMEN: Soft, nondistended, mildly tender; no hepatosplenomegaly; bowel sounds are present in all four quadrants. EXTREMITIES: No clubbing, cyanosis, or edema. SKIN: Normal; no rash; no jaundice. 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 Assessment and Plan Plan Impression: Sudden onset of severe pain suggests ischemia. - Constipation can also cause severe pain but not so long in duration - infection is possible but small bowel infection should cause diarrhea - Patient is improved a little. Lactic acid is normal but D dimer is elevated Plan: - Continue VTE prophylaxis - supportive measures - Consult general surgery - consider colonoscopy tomorrow or Monday - Pain control and hydration. - NPO or clear liquids only. Rad Wharton MD Apr 03, 2017 11:41
--- NOTE | 2017-04-03 11:47 | HHI.PR ---
Subjective Remarks Follow up on patient with enteritis. Patient seen and examined. Patient reports persistent but improved abdominal pain. Denies any fever or chills. Denies any diarrhea in fact no BM since admission. Tolerating diet. No nausea or vomiting. Objective Vitals Vital Signs Date Time Temp Pulse Resp B/P (MAP) Pulse Ox O2 Delivery O2 Flow Rate FiO2 04/03/17 08:23 97.8 80 18 139/93 (108) 94 04/03/17 05:04 98.6 83 20 152/65 (94) 94 04/03/17 00:57 98.6 93 20 146/67 (93) 94 04/02/17 21:14 98.8 98 19 153/72 (99) 94 04/02/17 16:00 98.0 76 18 146/72 (96) 97 04/02/17 13:12 97.9 89 18 170/70 (103) 97 I/O 04/02/17 04/02/17 04/02/17 04/03/17 04/03/17 04/03/17 07:00 15:00 23:00 07:00 15:00 23:00 Intake Total 1000 ml 580 ml Balance 1000 ml 580 ml Intake Oral 480 ml IV Total 1000 ml 100 ml # Voids 3 2 # Bowel Movements 0 Result Diagram: 04/03/17 0841 04/03/17 0841 Imaging Last Impressions Abdomen/Pelvis CT 04/02/17 0423 Signed Impressions: Service Date/Time: Sunday, April 02, 2017 05:28 - CONCLUSION: Several abnormally thickened loops of small bowel in the right lower quadrant with fat stranding and small amount of free fluid. Differential diagnosis includes enteritis from infection, inflammatory bowel disease or ischemia. No free air. Efra Martin MD Objective Remarks GENERAL: This is a well-nourished, well-developed patient, in no apparent distress. Awake and alert. Sitting up on side of bed. SKIN: No rashes, ecchymoses or lesions. Cool and dry. HEAD: Atraumatic. Normocephalic. EYES: Extraocular motions intact. No scleral icterus. No injection or drainage. ENT: Nose without drainage. Throat without erythema, tonsillar hypertrophy or exudate. Uvula midline. Airway patent. NECK: Trachea midline. Supple. CARDIOVASCULAR: Regular rate and rhythm without murmurs RESPIRATORY: Clear to auscultation. Breath sounds equal bilaterally. No wheezes GASTROINTESTINAL: Abdomen soft, nondistended. (+)diffuse tenderness to palpation. No guarding. No rigidity. MUSCULOSKELETAL: Extremities without edema. No calf tenderness. NEUROLOGICAL: Awake and alert. Able to move all extremities. Motor and sensory function grossly intact. Normal speech. Medications and IVs Current Medications Medications (Trade) Dose Ordered Sig/Aditi Route Start Time Stop Time Status Last Admin Ciprofloxacin/ Dextrose 200 ml @ 200 mls/hr Q12H IV 04/02/17 18:00 04/03/17 04:46 Metronidazole 100 ml @ 100 mls/hr Q8H IV 04/02/17 14:00 04/03/17 05:24 Sodium Chloride 1,000 ml @ 100 mls/hr Q10H IV 04/02/17 06:20 04/03/17 04:48 (NS Flush) 2 ml UNSCH PRN IV FLUSH 04/02/17 06:30 04/03/17 00:53 (NS Flush) 2 ml BID IV FLUSH 04/02/17 09:00 04/02/17 09:00 (Zofran Inj) 4 mg Q6H PRN IVP 04/02/17 06:30 04/03/17 00:53 (Tylenol) 650 mg Q6H PRN PO 04/02/17 06:30 (Morphine Inj) 2 mg Q3H PRN IV 04/02/17 06:30 (Roxicodone) 5 mg Q4H PRN PO 04/02/17 06:30 04/02/17 18:47 (Gunjan-Colace) 1 tab BID PO 04/02/17 09:00 04/03/17 09:23 (Milk Of Magnesia Liq) 30 ml Q12H PRN PO 04/02/17 06:30 (Senokot) 17.2 mg Q12H PRN PO 04/02/17 06:30 (Dulcolax Supp) 10 mg DAILY PRN RECTAL 04/02/17 06:30 (Lactulose Liq) 30 ml DAILY PRN PO 04/02/17 06:30 (Vasotec) 20 mg BID PO 04/02/17 14:45 04/03/17 09:23 (Synthroid) 112 mcg DAILY@0600 PO 04/03/17 06:00 04/03/17 05:22 (Pravachol) 80 mg HS PO 04/02/17 21:00 04/02/17 21:20 (Vasotec Inj) 1.25 mg Q6H PRN IV PUSH 04/02/17 14:45 (Apresoline) 10 mg Q6HR PRN PO 04/02/17 14:45 ([place] 5-325 Mg) 1 tab Q4H PRN PO 04/02/17 14:45 04/03/17 05:22 ([place] 7.5-325 Mg) 1 tab Q6H PRN PO 04/02/17 14:45 (Gunjan-Colace) 1 tab BID PRN PO 04/02/17 14:45 (Miralax) 17 gm DAILY PO 04/03/17 09:00 04/03/17 09:21 (Heparin Inj) 5,000 units Q8HR SQ 04/02/17 23:30 04/03/17 05:23 A/P Assessment and Plan 86 yo female with PMHX significant for HTN, HLD, Hypothyroidism and Glaucoma who presents to [facility] ED with complaints of severe "20/10" abdominal pain with associated nausea 1 day. Enteritis - Uncertain etiology - CT abd/pelvis revealed several abnormally thickened loops of small bowel in the right lower quadrant with fat stranding and small amount of free fluid - Patient is afebrile. White count is elevated at 15.7. LFTs and lipase are within normal limits. - GI following - appreciate their assistance. GI ordered Lactic acid and D Dimer. Lactic acid normal. D dimer elevated, GI considering arteriogram. Will discuss with GI. - Continue on IV Cipro and Metronidazole - Continue pain management - Clear liquid diet. Advance per GI. - Zofran prn nausea UTI - UA suggestive of urinary tract infection - Patient denies any dysuria but admits to incontinence - UCX shows no growth x 24hrs Leukocytosis - Secondary to above - unchanged 15.7 --> 15.6 - On IV antibiotics as above - Repeat labs in a.m. to monitor trend Hyperglycemia - No reported history of diabetes - random glc 199 --> 110 - Hemoglobin A1c 5.6 Hypertension - Continue patient's home dose of Enalapril 20 mg twice a day - hydralazine and vasotec prn - Monitor BP Hypothyroidism - Continue patient's home dose of levothyroxine 112 mcg daily - Check TSH level. Dyslipidemia - Continue patient's home dose of simvastatin 40 mg daily DVT prophylaxis - Bilateral SCD/MARYBEL hose - Heparin sq Discussed with patient and Dr. Franklin Attending Statement The exam, history, and the medical decision-making described in the above note were completed with the assistance of the mid-level provider. I reviewed and agree with the findings presented. I attest that I had a [id number] encounter with the patient on the same day, and personally performed and documented my assessment and findings in the medical record. Pt states that pain is improved but still present. Feels constipated, just took laxative and hopes she will be able to have a BM. abdomen is soft but does have pain on the right lower and left upper quadrant, hypoactive bowel sounds. HR rrr, lungs are clear Abdominal pain: GI following, D-dimer elevated but lactic acid neg. Reviewed note from GI, per their recs, will consult GS. continue DVT proph w heparin. continue cipro/ flagyl. Per GI might need colonoscopy monday or monday Leny Mckeon Apr 03, 2017 11:47 Salome Franklin MD Apr 03, 2017 12:06
[2017-04-03 12:12] VITALS: BP 175/74; PULSE 79; RESP 18; TEMP 98.4; O2SAT 96
[2017-04-03] MEDS: ACETAMINOPHEN/HYDROcodone 325 MG/7.5 MG TAB PO PRN ×2 (12:32→22:05)
[2017-04-03 16:28] VITALS: BP 172/83; PULSE 104; RESP 20; TEMP 98.2; O2SAT 94
--- NOTE | 2017-04-03 17:32 | MB ---
cc: JESSICA SYED M.D. DATE OF CONSULTATION 04/03/2017 Completing the dictation on Anna Corado. Completion is as follows: liver function tests are within normal limits. Glucose is slightly elevated at 110. Other tests are within normal limits. Lactate is 1.4. IMAGING Demonstrates abnormally thickened loops of small bowel in the right lower quadrant with fat stranding, a small amount of free fluid. Possibility includes enteritis, inflammatory bowel disease or ischemia. ASSESSMENT Abdominal pain right lower quadrant likely from either inflammatory bowel disease or infection. Ischemia is unlikely given the patient's essentially normal lactate level and stable vital signs. Her physical exam also does not point to ischemia. I would recommend the patient stay on clear liquids today as she had problems with solid food earlier today. We will follow with you. If GI is planning colonoscopy this would be advisable and potentially the distal ileum could be intubated with the colonoscope for evaluation and determination if the patient has possible Crohn disease. The patient does deny any history of Crohn disease but she is not sure of family history. Jessica Syed MD MAF/KK /3:26 PM /5:20 PM
--- NOTE | 2017-04-03 17:49 | MB ---
cc: JESSICA SYED M.D. DATE OF CONSULTATION 04/03/2017 REASON FOR CONSULTATION Thickened loops of small bowel. HISTORY OF PRESENT ILLNESS The patient is an 86-year-old female with extensive medical history including hypertension, hypercholesterolemia, hypothyroidism and glaucoma who presented to the emergency room with severe abdominal pain. The patient reported a large amount of retching but no vomiting. She denies any change in bowel habits. She had colonoscopy 12 years ago with polypectomy x2. PAST MEDICAL HISTORY Includes: 1. Hypertension. 2. Hypothyroidism. 3. Glaucoma. PAST SURGICAL HISTORY Includes: 1. Appendectomy. 2. Removal of urethral node without swelling. 3. Hysterectomy. 4. Left breast biopsy times two for benign disease. 5. Cataract extraction bilaterally. 6. Surgery for a retinal tear. 7. The patient also reports a previous history of a fracture of left wrist with pins placed. All hardware has been removed. MEDICATIONS Include: 1. Levothyroxine 112 micrograms daily. 2. Simvastatin 40 milligrams p.o. q.h.s. 3. Enalapril 20 milligrams twice a day. ALLERGIES THE PATIENT HAS ALLERGY TO CEPHALEXIN, PENICILLIN-G AND ATROPINE. PHYSICAL EXAMINATION GENERAL: Reveals an obese female in no acute distress. VITAL SIGNS: BP 175/74, pulse 79, respirations 18, temperature 98.4, 96% saturation on room air. HEENT: Sclerae anicteric. CHEST: Clear to auscultation. CARDIOVASCULAR: Exam reveals regular rate and rhythm. ABDOMEN: Soft with some mild tenderness in the right lower quadrant. There are no hernias noted. There is no rebound or guarding. PULSES: Intact. EXTREMITIES: The patient is able to move all four extremities without difficulty. NEUROLOGIC: Exam is nonfocal. LABORATORY DATA Laboratory values demonstrate WBC of 15.6, platelets 196,000. Chemistries are essentially within normal limits except for slightly elevated glucose. Liver function tests are normal as well. ADDENDUM Liver function tests are within normal limits. Glucose is slightly elevated at 110. Other tests are within normal limits. Lactate is 1.4. IMAGING Demonstrates abnormally thickened loops of small bowel in the right lower quadrant with fat stranding, a small amount of free fluid. Possibility includes enteritis, inflammatory bowel disease, obstruction or ischemia. ASSESSMENT Abdominal pain right lower quadrant likely from either inflammatory bowel disease or infection. Ischemia is unlikely given the patient's essentially normal lactate level and stable vital signs. Her physical exam also does not point to ischemia. I would recommend the patient stay on clear liquids today as she had problems with solid food earlier today. We will follow with you. If GI is planning colonoscopy this would be advisable and potentially the distal ileum could be intubated with the colonoscope for evaluation and determination if the patient has possible Crohn disease. The patient does deny any history of Crohn disease but she is not sure of family history. Jessica Syed MD MAF/KK /3:22 PM /11:56 AM [id number]
[2017-04-03 20:00] VITALS: BP 130/63; PULSE 80; RESP 19; TEMP 97.9; O2SAT 94
[2017-04-03] MEDS: PRAVASTATIN SOD 80 MG TAB PO SCH (21:01)
[2017-04-04] VITALS (7 sets, daily range): BP systolic 130–168; BP diastolic 61–75; PULSE 67–110; RESP 17–20; TEMP 98–98.8; O2SAT 93–97
[2017-04-04] MEDS: ONDANSETRON HCL 4 MG/2 ML VIAL IVP PRN ×3 (05:19→21:10)
[2017-04-04] MEDS: LEVOTHYROXINE SODIUM 112 MCG TAB PO SCH (05:20)
[2017-04-04] MEDS: ACETAMINOPHEN/HYDROcodone 325 MG/7.5 MG TAB PO PRN ×2 (05:20→15:17)
[2017-04-04] MEDS: CIPROFLOXACIN 400 MG PREMIX 200 ML IV SCH ×2 (05:20→18:14)
[2017-04-04] MEDS: metroNIDAZOLE 500 MG INJ 100 ML IV SCH ×3 (05:21→21:12)
[2017-04-04] MEDS: SODIUM CHLOR 0.9% 1000 ML INJ 1,000 ML IV SCH ×3 (05:21→18:22)
[2017-04-04] MEDS: HEPARIN SODIUM - SQ 10,000 UNITS/ML VIAL SQ SCH ×3 (05:26→21:10)
[2017-04-04] MEDS: SODIUM CHLORIDE 0.9% FLUSH 10 ML FLUSH IV FLUSH SCH ×2 (08:22→21:00)
[2017-04-04] MEDS: ENALAPRIL MALEATE 10 MG TAB PO SCH ×2 (08:22→21:11)
[2017-04-04] MEDS: POLYETHYLENE GLYCOL 17 GM PKG PO SCH (08:22)
[2017-04-04] MEDS: DOCUSATE SODIUM 50 MG/SENNA 8.6 MG TAB PO SCH (08:22)
[2017-04-04 11:24] LABS: AUTOMATED NEUTROPHIL # 9.3 TH/MM3 (1.8-7.7); BASOPHIL # 0.1 TH/MM3 (0-0.2); BASOPHIL % 0.5 % (0.0-2.0); EOSINOPHIL # 0.1 TH/MM3 (0-0.4); EOSINOPHIL % 0.8 % (0.0-4.0); HEMATOCRIT 39.6 % (35.0-46.0); HEMO FLAGS DIFF FINAL; LYMPH % 9.5 % (9.0-44.0); MEAN CELL VOLUME 86.7 FL (80.0-100.0); MEAN CORPUSCULAR HEMOGLOBIN 28.7 PG (27.0-34.0); MEAN CORPUSCULAR HGB CONC 33.1 % (32.0-36.0); MONO % 4.8 % (0.0-8.0); NEUT % 84.4 % (16.0-70.0); PLATELET COUNT 206 TH/MM3 (150-450); RED BLOOD COUNT 4.57 MIL/MM3 (4.00-5.30); RED CELL DISTRIBUTION WIDTH 13.5 % (11.6-17.2)
[2017-04-04 11:49] LABS: BICARBONATE 26.2 MEQ/L (21.0-32.0); POTASSIUM 3.6 MEQ/L (3.5-5.1)
--- NOTE | 2017-04-04 13:13 | HHI.PR ---
Subjective Remarks Follow-up Enteritis/UTI 04/04/17-patient seen and examined, states she was having some dry heaves last night mom states she is unable to drink the prep for colonoscopy. Son By the Bedside Objective Vitals Vital Signs Date Time Temp Pulse Resp B/P (MAP) Pulse Ox O2 Delivery O2 Flow Rate FiO2 04/04/17 12:15 98.8 86 20 142/64 (90) 93 04/04/17 08:03 98.7 84 20 137/65 (89) 93 04/04/17 04:00 98.8 67 19 130/61 (84) 94 04/04/17 00:00 98.0 88 17 132/62 (85) 94 04/03/17 20:00 97.9 80 19 130/63 (85) 94 04/03/17 16:28 98.2 104 20 172/83 (112) 94 04/03/17 13:32 16 I/O 04/03/17 04/03/17 04/03/17 04/04/17 04/04/17 04/04/17 07:00 15:00 23:00 07:00 15:00 23:00 Intake Total 720 ml 400 ml Balance 720 ml 400 ml Intake Oral 720 ml 400 ml # Voids 2 3 2 # Bowel Movements 0 Result Diagram: 04/04/17 1003 04/04/17 1003 Imaging Last Impressions Abdomen/Pelvis CT 04/02/17 0423 Signed Impressions: Service Date/Time: Sunday, April 02, 2017 05:28 - CONCLUSION: Several abnormally thickened loops of small bowel in the right lower quadrant with fat stranding and small amount of free fluid. Differential diagnosis includes enteritis from infection, inflammatory bowel disease or ischemia. No free air. Efra Martin MD Objective Remarks GENERAL: NAD SKIN: Warm and dry. HEAD: Normocephalic. EYES: No scleral icterus. No injection or drainage. NECK: Supple, trachea midline. No JVD or lymphadenopathy. CARDIOVASCULAR: Regular rate and rhythm without murmurs, gallops, or rubs. RESPIRATORY: Breath sounds equal bilaterally. No accessory muscle use. GASTROINTESTINAL: Abdomen soft, non-tender, nondistended. MUSCULOSKELETAL: No cyanosis, or edema. BACK: Nontender without obvious deformity. No CVA tenderness. A/P Problem List: (1) Enteritis ICD Code: K52.9 - Noninfective gastroenteritis and colitis, unspecified Assessment and Plan 86-year-old female with Enteritis - Uncertain etiology; unlikely ischemic bowel for surgery - CT abd/pelvis revealed several abnormally thickened loops of small bowel in the right lower quadrant with fat stranding and small amount of free fluid - GI following plan to perform colonoscopy within the next 24-48 hrs. hours - Continue on IV Cipro and Metronidazole - Continue pain management - Clear liquid diet. - Zofran prn nausea UTI - UC negative Leukocytosis - Resolved Hyperglycemia - Hemoglobin A1c 5.6 Hypertension - Continue patient's home dose of Enalapril 20 mg twice a day - hydralazine and vasotec prn - Monitor BP Hypothyroidism - Continue patient's home dose of levothyroxine 112 mcg daily Dyslipidemia - Continue patient's home dose of simvastatin 40 mg daily DVT prophylaxis - Bilateral SCD/MARYBEL hose - Heparin sq Jonah Juarez MD Apr 04, 2017 13:13
[2017-04-04] MEDS ORDERED: MAGNESIUM CITRATE SOLN 300 ML BTL PO ONE ×2 (13:30→15:30)
--- NOTE | 2017-04-04 15:11 | HHI.PR ---
Subjective Subjective Notes Resting in bed Concerned about issues at home Objective Vitals/I&O Vital Signs Date Time Temp Pulse Resp B/P (MAP) Pulse Ox O2 Delivery O2 Flow Rate FiO2 04/04/17 12:15 98.8 86 20 142/64 (90) 93 04/02/17 07:32 Room Air 04/02/17 04:27 2.00 Labs Laboratory Tests Test 04/04/17 10:03 White Blood Count 11.0 Red Blood Count 4.57 Hemoglobin 13.1 Hematocrit 39.6 Mean Corpuscular Volume 86.7 Mean Corpuscular Hemoglobin 28.7 Mean Corpuscular Hemoglobin Concent 33.1 Red Cell Distribution Width 13.5 Platelet Count 206 Mean Platelet Volume 9.1 Neutrophils (%) (Auto) 84.4 Lymphocytes (%) (Auto) 9.5 Monocytes (%) (Auto) 4.8 Eosinophils (%) (Auto) 0.8 Basophils (%) (Auto) 0.5 Neutrophils # (Auto) 9.3 Lymphocytes # (Auto) 1.0 Monocytes # (Auto) 0.5 Eosinophils # (Auto) 0.1 Basophils # (Auto) 0.1 CBC Comment DIFF FINAL Differential Comment Blood Urea Nitrogen 12 Creatinine 0.64 Random Glucose 135 Calcium Level 8.4 Sodium Level 142 Potassium Level 3.6 Chloride Level 109 Carbon Dioxide Level 26.2 Anion Gap 7 Estimat Glomerular Filtration Rate 88 Date/Time Source Procedure Growth Status 04/02/17 04:30 Urine Catheterized Urine Urine Culture - Final NO GROWTH IN 48 HOURS. Complete Cardiovascular: Regular Lungs: Clear Abdomen: Other (non distended; minimally tender to palpation ) Extremities: No edema A/P Assessment and Plan 86 year old female with abdominal pain -GI planning colonoscopy tomorrow -Clear liquids; NPO after MN -No surgical issues at this time -Will follow results of colonoscopy Attending Note - Dr. Syed Abdomen remains distended; Crohn's vs. infectious vs. obstruction Await colonoscopy results; hopefully can intubate ileum The exam, history, and the medical decision-making described in the above note were completed with the assistance of the mid-level provider. I reviewed and agree with the findings presented. I attest that I had a [id number] encounter with the patient on the same day, and personally performed and documented my assessment and findings in the medical record. Sindy Bernal Apr 04, 2017 15:11 Nsetor Syed MD Apr 05, 2017 16:30
--- NOTE | 2017-04-04 16:56 | HHI.GIFU ---
Subjective Remarks Sitting up on side of bed. States she was feeling fine until she started the bowel prep for egd/colonoscopy and is now having nausea- small amount of clear emesis, mid abdominal pain. Had one bottle of magnesium citrate, states she is unsure if she can drink the other. Encouraged patient to take a break and maybe take the second bottle in a few hours- she will consider this but states she may not want to proceed with egd/colonoscopy- depending on how she is feeling later in day. Objective Vitals I&O Vital Signs Date Time Temp Pulse Resp B/P (MAP) Pulse Ox O2 Delivery O2 Flow Rate FiO2 04/04/17 16:36 98.7 91 20 165/74 (104) 97 04/04/17 12:15 98.8 86 20 142/64 (90) 93 04/04/17 08:03 98.7 84 20 137/65 (89) 93 04/04/17 04:00 98.8 67 19 130/61 (84) 94 04/04/17 00:00 98.0 88 17 132/62 (85) 94 04/03/17 20:00 97.9 80 19 130/63 (85) 94 I/O 04/03/17 04/03/17 04/03/17 04/04/17 04/04/17 04/04/17 07:00 15:00 23:00 07:00 15:00 23:00 Intake Total 720 ml 400 ml 600 ml Balance 720 ml 400 ml 600 ml Intake Oral 720 ml 400 ml 600 ml # Voids 2 3 2 2 # Bowel Movements 0 Laboratory Laboratory Tests Test 04/04/17 10:03 White Blood Count 11.0 Red Blood Count 4.57 Hemoglobin 13.1 Hematocrit 39.6 Mean Corpuscular Volume 86.7 Mean Corpuscular Hemoglobin 28.7 Mean Corpuscular Hemoglobin Concent 33.1 Red Cell Distribution Width 13.5 Platelet Count 206 Mean Platelet Volume 9.1 Neutrophils (%) (Auto) 84.4 Lymphocytes (%) (Auto) 9.5 Monocytes (%) (Auto) 4.8 Eosinophils (%) (Auto) 0.8 Basophils (%) (Auto) 0.5 Neutrophils # (Auto) 9.3 Lymphocytes # (Auto) 1.0 Monocytes # (Auto) 0.5 Eosinophils # (Auto) 0.1 Basophils # (Auto) 0.1 CBC Comment DIFF FINAL Differential Comment Blood Urea Nitrogen 12 Creatinine 0.64 Random Glucose 135 Calcium Level 8.4 Sodium Level 142 Potassium Level 3.6 Chloride Level 109 Carbon Dioxide Level 26.2 Anion Gap 7 Estimat Glomerular Filtration Rate 88 Date/Time Source Procedure Growth Status 04/02/17 04:30 Urine Catheterized Urine Urine Culture - Final NO GROWTH IN 48 HOURS. Complete Imaging Last Impressions Abdomen/Pelvis CT 04/02/17 0423 Signed Impressions: Service Date/Time: Sunday, April 02, 2017 05:28 - CONCLUSION: Several abnormally thickened loops of small bowel in the right lower quadrant with fat stranding and small amount of free fluid. Differential diagnosis includes enteritis from infection, inflammatory bowel disease or ischemia. No free air. Efra Martin MD Physical Exam HEENT: Normocephalic; atraumatic; no jaundice. CHEST: CTA CARDIAC: RRR. ABDOMEN: Soft, nondistended, mildly tender; no hepatosplenomegaly; bowel sounds are present in all four quadrants. EXTREMITIES: No clubbing, cyanosis, or edema. SKIN: Normal; no rash; no jaundice. GROMMET WORKER: No focal deficits; alert and oriented times three. Assessment and Plan Plan Impression: - Abdominal pain. CT Scan abdomen and pelvis (04/02/17)----> Several abnormally thickened loops of small bowel in the right lower quadrant with fat stranding adn small amount of free fluid. Differential diagnosis includes enteritis from infection, inflammatory bowel disease or ischemia. No free air. Unclear etiology at this time, ? ischemia vs. constipation, infectious. Plan is for Colonoscopy in am- however, pt is having a hard time with bowel prep, states she was feeling better until she took a bottle of the mag. citrate- will take a break and try to complete the second bottle later in the evening, but is unsure if she will want to proceed with procedure if she continues to have n/v/pain with bowel prep. WBC improved, 11.0. Cipro, Flagyl. S/P surgical evaluation- no surgical intervention at this time. - Leukocytosis, Improved. Cipro/Flagyl. Plan: - Possible colonoscopy in am if patient agreeable - Clear liquids - NPO after MN - Magnesium citrate prep - Hold heparin after MN - Monitor labs - Supportive care - Further recommendations to follow based on results of above - Pt seen and examined by Dr. Wharton and myself and this note is written on his behalf Gudelia Lynne Apr 04, 2017 16:56
[2017-04-04] MEDS: MORPHINE SULFATE 4 MG/ML INJ IV PRN (21:11)
[2017-04-04] MEDS: PRAVASTATIN SOD 80 MG TAB PO SCH (21:11)
--- NOTE | 2017-04-04 22:54 | RADRPT ---
EXAM DATE/TIME: 04/04/2017 22:28 [facility] COMPARISON: CT ABDOMEN & PELVIS W CONTRAST, April 02, 2017, 5:28. INDICATIONS : Diffuse abdominal pain with nausea and vomiting. ORAL CONTRAST: No oral contrast ingested. RADIATION DOSE: 12.99 CTDIvol (mGy) MEDICAL HISTORY : Hypertension. SURGICAL HISTORY : Appendectomy. Hysterectomy. ENCOUNTER: Subsequent ACUITY: 4 - 6 days PAIN SCALE: 6/10 LOCATION: All quadrants. TECHNIQUE: Volumetric scanning of the abdomen and pelvis was performed. Using automated exposure control and adjustment of the mA and/or kV according to patient size, radiation dose was kept as low as reasonably achievable to obtain optimal diagnostic quality images. DICOM format image data is av ailable electronically for review and comparison. FINDINGS: LOWER LUNGS: Interval development of small bilateral, right greater than left, pleural effusions. Minimal associated airspace disease at the lung bases likely reflects atelectasis. LIVER: Homogeneous density without lesion. There is no dilation of the biliary tree. No calcifi ed gallstones. Vicarious excretion of contrast in the gallbladder. SPLEEN: Normal size without lesion. PANCREAS: Within normal limits. KIDNEYS: Kidneys are symmetrical in size without evidence for hydronephrosis or radiopaque renal oculi. ADRENAL GLANDS: Within normal limits. VASCULAR: There is no aortic aneurysm. BOWEL/MESENTERY: Interval development of diffuse fluid filled distended loops of small bowel with transition point in the distal ileum in the right lower quadrant. Bowel loops measure up to 3.2 cm. No definitive pneumatosis. No free air.: Colon is largely decompressed with scattered colonic diverti cula. Small ascites with fluid primarily along the inferior margin of the liver and in the deep pelvi s. ABDOMINAL WALL: Within normal limits. RETROPERITONEUM: There is no lymphadenopathy. BLADDER: Decompressed. REPRODUCTIVE: Uterus is surgically absent. INGUINAL: There is no lymphadenopathy or hernia. MUSCULOSKELETAL: No significant focal lytic or blastic bony lesions. CONCLUSION: 1. Interval development of fluid-filled diffusely distended small bowel with transition point in the right lower quadrant in the distal ileum. No evidence for bowel infarction or perforation at this caty e. Findings are most consistent with developing small bowel obstruction versus developing moderate to severe adynamic ileus. 2. Interval development of small bilateral, right greater then left, pleural effusions and trace asci jorge. Wai Ontiveros MD on April 04, 2017 at 22:42 Board Certified Radiologist. This report was verified electronically.
[2017-04-05] VITALS: BP 135/69; PULSE 89; RESP 18; TEMP 98; O2SAT 94
[2017-04-05] MEDS: MORPHINE SULFATE 4 MG/ML INJ IV PRN ×3 (02:30→13:00)
[2017-04-05] MEDS: ONDANSETRON HCL 4 MG/2 ML VIAL IVP PRN ×3 (02:30→15:14)
[2017-04-05 04:15] VITALS: BP 138/70; PULSE 90; RESP 19; TEMP 98.9; O2SAT 95
[2017-04-05] MEDS: SODIUM CHLOR 0.9% 1000 ML INJ 1,000 ML IV SCH ×2 (04:20→14:19)
[2017-04-05] MEDS: metroNIDAZOLE 500 MG INJ 100 ML IV SCH ×3 (05:44→20:43)
[2017-04-05] MEDS: PROMETHAZINE HCL 25 MG SUPP RECTAL PRN ×2 (05:44→13:13)
[2017-04-05] MEDS: LEVOTHYROXINE SODIUM 112 MCG TAB PO SCH (06:00)
[2017-04-05] MEDS: CIPROFLOXACIN 400 MG PREMIX 200 ML IV SCH ×2 (06:00→17:11)
[2017-04-05 08:21] VITALS: BP 164/75; PULSE 63; RESP 20; TEMP 98.3; O2SAT 91
[2017-04-05] MEDS: ACETAMINOPHEN/HYDROcodone 325 MG/7.5 MG TAB PO PRN (08:21)
[2017-04-05] MEDS: POLYETHYLENE GLYCOL 17 GM PKG PO SCH (08:21)
[2017-04-05] MEDS: ENALAPRIL MALEATE 10 MG TAB PO SCH ×2 (08:21→20:44)
[2017-04-05] MEDS: SODIUM CHLORIDE 0.9% FLUSH 10 ML FLUSH IV FLUSH SCH ×2 (08:21→20:44)
[2017-04-05 12:05] VITALS: BP 144/63; PULSE 79; RESP 20; TEMP 97.4; O2SAT 90
--- NOTE | 2017-04-05 12:19 | HHI.PR ---
Subjective Remarks Follow-up Enteritis/UTI 04/04/17-patient seen and examined, states she was having some dry heaves last night mom states she is unable to drink the prep for colonoscopy. Son By the Bedside 04/05/17-patient seen and examined, reports multiple episodes of emesis. 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 CT abdomen/pelvics with finding of small bowel obstruction versus ileus Objective Vitals Vital Signs Date Time Temp Pulse Resp B/P (MAP) Pulse Ox O2 Delivery O2 Flow Rate FiO2 04/05/17 12:05 97.4 79 20 144/63 (90) 90 04/05/17 08:21 98.3 63 20 164/75 (104) 91 04/05/17 04:15 98.9 90 19 138/70 (92) 95 04/05/17 00:00 98.0 89 18 135/69 (91) 94 04/04/17 20:45 98.3 94 18 136/75 (95) 94 04/04/17 16:36 98.7 91 20 165/74 (104) 97 I/O 04/04/17 04/04/17 04/04/17 04/05/17 04/05/17 04/05/17 06:59 14:59 22:59 06:59 14:59 22:59 Intake Total 400 ml 600 ml 1000 ml 400 ml Balance 400 ml 600 ml 1000 ml 400 ml Intake Oral 400 ml 600 ml 1000 ml 400 ml # Voids 2 2 4 4 # Bowel Movements 0 0 0 Result Diagram: 04/04/17 1003 04/04/17 1003 Imaging Last Impressions Abdomen/Pelvis CT 04/04/17 0000 Signed Impressions: Service Date/Time: Tuesday, April 04, 2017 22:28 - CONCLUSION: 1. Interval development of fluid-filled diffusely distended small bowel with transition point in the right lower quadrant in the distal ileum. No evidence for bowel infarction or perforation at this time. Findings are most consistent with developing small bowel obstruction versus developing moderate to severe adynamic ileus. 2. Interval development of small bilateral, right greater then left, pleural effusions and trace ascites. Wai Ontiveros MD Objective Remarks GENERAL: NAD SKIN: Warm and dry. HEAD: Normocephalic. EYES: No scleral icterus. No injection or drainage. NECK: Supple, trachea midline. No JVD or lymphadenopathy. CARDIOVASCULAR: Regular rate and rhythm without murmurs, gallops, or rubs. RESPIRATORY: Breath sounds equal bilaterally. No accessory muscle use. GASTROINTESTINAL: Abdomen soft, non-tender, nondistended. MUSCULOSKELETAL: No cyanosis, or edema. BACK: Nontender without obvious deformity. No CVA tenderness. A/P Problem List: (1) Enteritis ICD Code: K52.9 - Noninfective gastroenteritis and colitis, unspecified (2) Adynamic ileus ICD Code: K56.0 - Paralytic ileus (3) Small bowel obstruction, partial ICD Code: K56.69 - Other intestinal obstruction Assessment and Plan 86-year-old female with Enteritis - Uncertain etiology; unlikely ischemic bowel for surgery - CT abd/pelvis revealed several abnormally thickened loops of small bowel in the right lower quadrant with fat stranding and small amount of free fluid - Panendoscopy postponed versus cancer as patient unable to tolerate prep - Continue on IV Cipro and Metronidazole - Continue pain management - Currently nothing by mouth - Zofran prn nausea Partial small bowel obstruction versus adynamic ileus CT abdomen noted and reviewed by me with finding of partial small bowel obstruction versus severe adynamic ileus Check flat and upright Please NG tube 04/05/17 and keep nothing by mouth IV fluid hydration UTI - UC negative Leukocytosis - Resolved Hyperglycemia - Hemoglobin A1c 5.6 Hypertension - Continue patient's home dose of Enalapril 20 mg twice a day - hydralazine and vasotec prn - Monitor BP Hypothyroidism - Continue patient's home dose of levothyroxine 112 mcg daily Dyslipidemia - Continue patient's home dose of simvastatin 40 mg daily DVT prophylaxis - Bilateral SCD/MARYBEL hose - Heparin sq Jonah Juarez MD Apr 05, 2017 12:19
--- NOTE | 2017-04-05 14:53 | HHI.PR ---
Subjective Subjective Notes Sitting on the side of the bed Did not tolerate prep for colonoscopy Objective Vitals/I&O Vital Signs Date Time Temp Pulse Resp B/P (MAP) Pulse Ox O2 Delivery O2 Flow Rate FiO2 04/05/17 12:05 97.4 79 20 144/63 (90) 90 04/02/17 07:32 Room Air 04/02/17 04:27 2.00 Labs Date/Time Source Procedure Growth Status 04/02/17 04:30 Urine Catheterized Urine Urine Culture - Final NO GROWTH IN 48 HOURS. Complete Cardiovascular: Regular Lungs: Clear Abdomen: Non-tender, Other (minimally distended ) Extremities: No edema A/P Assessment and Plan 86 year old female with abdominal pain -Colonoscopy cancelled -Repeat CT abd/pelvis shows SBO vs ileus -Okay for ice chips -Small bowel series -Will continue to follow Attending Note - Dr. Syed Patient remains distended and very uncomfortable; explained findings. She is agreeable to placement of NG tube today to decompress her She is agreeable to undergo laparoscopy, possible ex lap and bowel resection tomorrow. Son was present and agreed as well. The exam, history, and the medical decision-making described in the above note were completed with the assistance of the mid-level provider. I reviewed and agree with the findings presented. I attest that I had a [id number] encounter with the patient on the same day, and personally performed and documented my assessment and findings in the medical record. Sindy Bernal Apr 05, 2017 14:53 Nestor Syed MD Apr 05, 2017 16:24
[2017-04-05 16:17] VITALS: BP 158/78; PULSE 88; RESP 20; TEMP 98.9; O2SAT 91
--- NOTE | 2017-04-05 17:26 | RADRPT ---
EXAM DATE/TIME: 04/05/2017 14:11 [facility] COMPARISON: CT ABDOMEN & PELVIS W/O CONTRAST, April 04, 2017, 22:28. INDICATIONS : Abdominal pain, nausea, vomitting, and constipation. MEDICAL HISTORY : Hysterectomy. SURGICAL HISTORY : Appendectomy. Hysterectomy. ENCOUNTER: Initial ACUITY: 3 days PAIN SCORE: 2/10 LOCATION: abdomen FINDINGS: Diffuse osteopenia. No dilated loops of small or large bowel. Blunting of the costophrenic angle on the right-sided suggests pleural effusion. CONCLUSION: 1. No dilated loops of small or large bowel. 2. Probable right pleural effusion. Jeovanny Walters MD on April 05, 2017 at 17:23 Board Certified Radiologist. This report was verified electronically.
--- NOTE | 2017-04-05 18:15 | HHI.GIFU ---
Subjective Remarks Did not tolerate bowel prep last night. Had significant n/v and worsening pain. Feeling better with NGT to LIWS. Belching, but no flatus or bowel movement. Objective Vitals I&O Vital Signs Date Time Temp Pulse Resp B/P (MAP) Pulse Ox O2 Delivery O2 Flow Rate FiO2 04/05/17 16:17 98.9 88 20 158/78 (104) 91 04/05/17 12:05 97.4 79 20 144/63 (90) 90 04/05/17 08:21 98.3 63 20 164/75 (104) 91 04/05/17 04:15 98.9 90 19 138/70 (92) 95 04/05/17 00:00 98.0 89 18 135/69 (91) 94 04/04/17 20:45 98.3 94 18 136/75 (95) 94 I/O 04/04/17 04/04/17 04/04/17 04/05/17 04/05/17 04/05/17 07:00 15:00 23:00 07:00 15:00 23:00 Intake Total 400 ml 600 ml 1000 ml 400 ml 240 ml Output Total 1350 ml Balance 400 ml 600 ml 1000 ml 400 ml 240 ml -1350 ml Intake Oral 400 ml 600 ml 1000 ml 400 ml 240 ml Output Gastric Drainage Total 1350 ml # Voids 2 2 4 4 3 # Bowel Movements 0 0 0 Laboratory Date/Time Source Procedure Growth Status 04/02/17 04:30 Urine Catheterized Urine Urine Culture - Final NO GROWTH IN 48 HOURS. Complete Imaging Last Impressions Abdomen/Pelvis CT 04/04/17 0000 Signed Impressions: Service Date/Time: Tuesday, April 04, 2017 22:28 - CONCLUSION: 1. Interval development of fluid-filled diffusely distended small bowel with transition point in the right lower quadrant in the distal ileum. No evidence for bowel infarction or perforation at this time. Findings are most consistent with developing small bowel obstruction versus developing moderate to severe adynamic ileus. 2. Interval development of small bilateral, right greater then left, pleural effusions and trace ascites. Wai Ontiveros MD Physical Exam HEENT: Normocephalic; atraumatic; no jaundice. CHEST: CTA CARDIAC: RRR. ABDOMEN: Soft, nondistended, mildly tender; no hepatosplenomegaly; bowel sounds are present in all four quadrants. EXTREMITIES: No clubbing, cyanosis, or edema. SKIN: Normal; no rash; no jaundice. SCREEN DOOR MAKER: No focal deficits; alert and oriented times three. Assessment and Plan Plan Impression: - Abdominal pain. CT Scan abdomen and pelvis (04/02/17)----> Several abnormally thickened loops of small bowel in the right lower quadrant with fat stranding adn small amount of free fluid. Differential diagnosis includes enteritis from infection, inflammatory bowel disease or ischemia. No free air. Unclear etiology at this time, ? ischemia vs. constipation, infectious. Plan was for colonoscopy, but did not tolerate the bowel prep and had significant n/v/abdominal pain. CT Scan abdomen and pelvis without IV contrast (04/04/17)----> Interval development of fluid-filled diffusely distended small bowel with transition point in the right lower quadrant in the distal ileum. No evidence for bowel infarction or perforation at this time. Findings are most consistent with developing small bowel obstruction versus developing moderate to severe adynamic ielus. Interval development of small bilateral right greater than left, pleural effusions and trace ascites. KUB (04/05/17)----> no dilated loops of small or large bowel. Probable right pleural effusion. Feeling better since NGT placed to LIWS. Belching, but no flatus/bowel movement. GS following, plan for exploratory surgery tomomrrow. - Leukocytosis, Improved. Cipro/Flagyl. Plan: - NPO - NGT to LIWS - GS following, plan for exploratory surgery tomorrow - Supportive care - Further recommendations to follow based on results of above - Pt seen and examined by Dr. Wharton and myself and this note is written on his behalf Gudelia Lynne Apr 05, 2017 18:15
[2017-04-05] MEDS ORDERED: CHLORHEXIDINE GLUCONATE 2 % 1 PACK (2 CLOTHS) TOPICAL PRN (18:30)
[2017-04-05] MEDS ORDERED: LACTATED RINGER'S 1000 ML IV PRN (18:30)
[2017-04-05] MEDS ORDERED: METOPROLOL TARTRATE 25 MG TAB PO PRN (18:30)
[2017-04-05] MEDS ORDERED: INSULIN HUMAN REGULAR 1,000 UNITS/10 ML VIAL SQ PRN (18:30)
[2017-04-05] MEDS ORDERED: POVIDONE IODINE 5% (ANTISEPSIS KIT) 4 APPLICATIONS EACH NARE PRN (18:30)
[2017-04-05] MEDS ORDERED: SODIUM CHLORID 0.9% 500 ML IV PRN (18:30)
[2017-04-05 20:00] VITALS: BP 146/65; PULSE 95; RESP 20; TEMP 98.2; O2SAT 92
[2017-04-05] MEDS: PRAVASTATIN SOD 80 MG TAB PO SCH (20:44)
[2017-04-06] VITALS: BP 120/61; PULSE 110; RESP 20; TEMP 99.1; O2SAT 92
[2017-04-06] MEDS: SODIUM CHLOR 0.9% 1000 ML INJ 1,000 ML IV SCH ×2 (00:20→12:35)
[2017-04-06 04:00] VITALS: BP 140/73; PULSE 127; RESP 20; TEMP 98.4; O2SAT 95
[2017-04-06] MEDS: LEVOTHYROXINE SODIUM 112 MCG TAB PO SCH (05:05)
[2017-04-06] MEDS: CIPROFLOXACIN 400 MG PREMIX 200 ML IV SCH ×2 (05:05→14:23)
[2017-04-06] MEDS: ONDANSETRON HCL 4 MG/2 ML VIAL IVP PRN (05:05)
[2017-04-06] MEDS: metroNIDAZOLE 500 MG INJ 100 ML IV SCH ×3 (05:05→21:56)
[2017-04-06 08:00] VITALS: BP 109/59; PULSE 90; RESP 20; TEMP 99.3; O2SAT 92
[2017-04-06] MEDS: POLYETHYLENE GLYCOL 17 GM PKG PO SCH (09:00)
[2017-04-06] MEDS: ENALAPRIL MALEATE 10 MG TAB PO SCH ×2 (09:00→21:00)
[2017-04-06] MEDS: SODIUM CHLORIDE 0.9% FLUSH 10 ML FLUSH IV FLUSH SCH ×2 (09:03→21:00)
[2017-04-06 12:00] VITALS: BP 156/73; PULSE 103; RESP 20; TEMP 98.8; O2SAT 92
[2017-04-06] MEDS ORDERED: ONDANSETRON HCL 4 MG/2 ML VIAL IV PUSH ONE (12:00)
[2017-04-06] MEDS ORDERED: NEOSTIGMINE 3 MG/3 ML SYR IV ONE (12:00)
[2017-04-06] MEDS ORDERED: PHENYLEPH/NS 1000 MCG/10 ML SYR IV ONE (12:00)
[2017-04-06] MEDS ORDERED: ROCURONIUM INJ 50 MG/5 ML SYRINGE IV PUSH ONE (12:00)
[2017-04-06] MEDS ORDERED: LACTATED RINGER'S 1000 ML INJ 1,000 ML IV ONE (12:00)
[2017-04-06] MEDS ORDERED: PROPOFOL 200 MG/20 ML AMP IV ONE (12:00)
--- NOTE | 2017-04-06 12:11 | HHI.PR ---
Subjective Remarks Follow-up Enteritis/UTI 04/04/17-patient seen and examined, states she was having some dry heaves last night mom states she is unable to drink the prep for colonoscopy. Son By the Bedside 04/05/17-patient seen and examined, reports multiple episodes of emesis. 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 CT abdomen/pelvics with finding of small bowel obstruction versus ileus 04/06/17-patient seen and examined, complains of abdominal pain currently denies any nausea. States she hasn't had a bowel movement since admission Objective Vitals Vital Signs Date Time Temp Pulse Resp B/P (MAP) Pulse Ox O2 Delivery O2 Flow Rate FiO2 04/06/17 08:00 99.3 90 20 109/59 (76) 92 04/06/17 04:00 98.4 127 20 140/73 (95) 95 04/06/17 00:00 99.1 110 20 120/61 (80) 92 04/05/17 20:00 98.2 95 20 146/65 (92) 92 04/05/17 16:17 98.9 88 20 158/78 (104) 91 I/O 04/05/17 04/05/17 04/05/17 04/06/17 04/06/17 04/06/17 06:59 14:59 22:59 06:59 14:59 22:59 Intake Total 400 ml 240 ml 300 ml Output Total 1700 ml 1100 ml 50 ml Balance 400 ml 240 ml -1400 ml -1100 ml -50 ml Intake Oral 400 ml 240 ml IV Total 300 ml Output Gastric Drainage Total 1700 ml 1100 ml 50 ml # Voids 4 3 1 2 # Bowel Movements 0 Result Diagram: 04/04/17 1003 04/04/17 1003 Imaging Last Impressions Abdomen X-Ray 04/05/17 0000 Signed Impressions: Service Date/Time: Wednesday, April 05, 2017 14:11 - CONCLUSION: 1. No dilated loops of small or large bowel. 2. Probable right pleural effusion. Jeovanny Walters MD Abdomen/Pelvis CT 04/04/17 0000 Signed Impressions: Service Date/Time: Tuesday, April 04, 2017 22:28 - CONCLUSION: 1. Interval development of fluid-filled diffusely distended small bowel with transition point in the right lower quadrant in the distal ileum. No evidence for bowel infarction or perforation at this time. Findings are most consistent with developing small bowel obstruction versus developing moderate to severe adynamic ileus. 2. Interval development of small bilateral, right greater then left, pleural effusions and trace ascites. Wai Ontiveros MD Objective Remarks GENERAL: NAD SKIN: Warm and dry. HEAD: Normocephalic. EYES: No scleral icterus. No injection or drainage. NECK: Supple, trachea midline. No JVD or lymphadenopathy. CARDIOVASCULAR: Regular rate and rhythm without murmurs, gallops, or rubs. RESPIRATORY: Breath sounds equal bilaterally. No accessory muscle use. GASTROINTESTINAL: Abdomen soft, non-tender, nondistended. MUSCULOSKELETAL: No cyanosis, or edema. BACK: Nontender without obvious deformity. No CVA tenderness. A/P Problem List: (1) Enteritis ICD Code: K52.9 - Noninfective gastroenteritis and colitis, unspecified (2) Adynamic ileus ICD Code: K56.0 - Paralytic ileus (3) Small bowel obstruction, partial ICD Code: K56.69 - Other intestinal obstruction Assessment and Plan 86-year-old female with Enteritis - Uncertain etiology; unlikely ischemic bowel for surgery - CT abd/pelvis revealed several abnormally thickened loops of small bowel in the right lower quadrant with fat stranding and small amount of free fluid - Panendoscopy postponed as patient unable to tolerate prep - Continue on IV Cipro and Metronidazole - Continue pain management - Currently nothing by mouth - Zofran prn nausea Partial small bowel obstruction versus adynamic ileus CT abdomen with finding of partial small bowel obstruction versus severe adynamic ileus Plan for possible exploratory laparoscopy with MARTITA today 04/06/17 Appreciate input from general surgery UTI - UC negative Leukocytosis - Resolved Hyperglycemia - Hemoglobin A1c 5.6 Hypertension - Continue patient's home dose of Enalapril 20 mg twice a day - hydralazine and vasotec prn - Monitor BP Hypothyroidism - Continue patient's home dose of levothyroxine 112 mcg daily Dyslipidemia - Continue patient's home dose of simvastatin 40 mg daily DVT prophylaxis - Bilateral SCD/MARYBEL hose - Heparin sq Jonah Juarez MD Apr 06, 2017 12:11
[2017-04-06] MEDS ORDERED: ACETAMINOPHEN 1000 MG/100 ML 100 ML IV ONE (13:17)
[2017-04-06] MEDS ORDERED: HYDROmorphone HCL PF 2 MG/ML VIAL ONE (13:17)
[2017-04-06] MEDS ORDERED: SUGAMMADEX SODIUM 200 MG/2 ML VIAL IV PUSH ONE ×2 (13:17)
[2017-04-06] MEDS ORDERED: BUPIVACAINE/EPINEPHRINE 0.25% PF 10 ML VIAL INFIL ONE (15:08)
[2017-04-06] MEDS ORDERED: BUPIVACAINE/EPINEPHRINE 0.25% PF 30 ML VIAL INFIL ONE (15:10)
--- NOTE | 2017-04-06 15:24 | HHI.PR ---
cc: Nestor Syed MD Immediate Post Op Note Procedure Date: Apr 06, 2017 Pre Op Diagnosis: Small bowel obstruction Post Op Diagnosis: Same, secondary to adhesions Surgeon: Nestor Syed Statistics Tutor(s): LEANDRO Claros Procedure: Diagnostic laparoscopy, laparoscopic lysis of adhesions Complications: None Estimated blood loss: <30 ml Anesthesia: General Drains: None IVF (1100 ml) Patient to: PACU Patient Condition: Fair Date/Time of Procedure: SEE SURGICAL CARE RECORD Nestor Syed MD Apr 06, 2017 15:24
--- NOTE | 2017-04-06 16:45 | RADRPT ---
EXAM DATE/TIME: 04/06/2017 15:58 [facility] COMPARISON: CHEST SINGLE AP, July 29, 2015, 20:23. INDICATIONS : Shortness of breath. MEDICAL HISTORY : Hysterectomy. SURGICAL HISTORY : Appendectomy. Hysterectomy. ENCOUNTER: Subsequent ACUITY: 1 day PAIN SCORE: Non-responsive. LOCATION: Bilateral chest FINDINGS: The heart is enlarged. Scattered bibasilar streakiness is noted consistent with atelectasis and/or mi nimal developing infiltrates. A nasogastric tube has its tip in the stomach. Degenerative changes an d scoliosis of the thoracic spine are noted. CONCLUSION: 1. Minimal bibasilar streakiness consistent with atelectasis and/or mild developing infiltrates. 2. Cardiomegaly. 3. Degenerative changes and scoliosis of the thoracic spine. Tim Gomez MD on April 06, 2017 at 16:40 Board Certified Radiologist. This report was verified electronically.
[2017-04-06 17:23] LABS: BICARBONATE 34.8 MEQ/L (21.0-32.0); POTASSIUM 3.1 MEQ/L (3.5-5.1)
--- NOTE | 2017-04-06 18:57 | MP ---
cc: JESSICA SYED MD DATE OF SURGERY 04/06/2017 PROCEDURE Diagnostic laparoscopy with laparoscopic lysis of adhesions. PREOPERATIVE DIAGNOSIS Small bowel obstruction. POSTOPERATIVE DIAGNOSIS Small bowel obstruction secondary to adhesions. ANESTHESIA General endotracheal SURGEON Heydi Syed MD ESTIMATED BLOOD LOSS Less than 30 mL FLUIDS 1100 mL crystalloid COMPLICATIONS None. DRAINS None SPECIMEN None FINDINGS Small bowel obstruction right lower quadrant secondary to adhesion. PROCEDURE IN DETAIL The patient was taken to the operating room and placed on the operating table in the supine position. After an adequate level of general endotracheal anesthesia was achieved, the abdomen was prepped and draped in usual fashion. Time-out was taken confirming the correct patient, site and procedure to be performed. Infraumbilical site was injected with local anesthetic and a small incision was made. Five mm trocar was then inserted under direct vision and entered the abdominal cavity under direct vision uneventfully. When this was completed, second and third 5 mm trocars were placed with one in the suprapubic region and the second in the right lower quadrant. Both entered the abdominal cavity under direct vision uneventfully. The patient was noted to have a small amount of bloody fluid present and dilated small bowel in the right lower quadrant. A loop of intestine with adhesion was noted. The adhesion was taken down with a harmonic scalpel. Small bowel was released in this fashion. Additional small bowel that was adhesed to the anterior abdominal wall was taken down sharply with Endo jarod. When this had been completed, one small area on the small bowel was reinforced with a single 3-0 Vicryl suture. This was performed endoscopically. When this was completed and this was reinforced, the remainder of the small bowel was run all the way to the ileocecal valve. No other areas of adhesion were noted. Bowel that was captured within the adhesion was seen to be viable and there were no strictures noted. When this was completed, all bloody material was irrigated and aspirated from the abdominal cavity. Insufflation was discontinued and the 5-mm trocars were removed under direct vision. No bleeding was noted from the trocar sites during desufflation. The laparoscope was removed and the final trocar was removed as well. The skin was closed at each of the trocar sites with 4-0 Vicryl in an interrupted buried fashion. The three trocar sites were dressed with Steri-Strips. The patient was extubated and taken back to the recovery room in stable condition. She tolerated the procedure well. MD BIBIANA Martinez/ /3:31 PM /6:46 PM
[2017-04-06 20:00] VITALS: BP 156/76; PULSE 92; RESP 25; TEMP 98.7; O2SAT 95
[2017-04-06] MEDS ORDERED: POTASSIUM CHLOR 20 MEQ PREMIX 100 ML ONE (20:14)
[2017-04-06] MEDS ORDERED: POTASSIUM CHLOR 20 MEQ PREMIX 100 ML IV ONE (20:45)
[2017-04-06] MEDS: PRAVASTATIN SOD 80 MG TAB PO SCH (21:00)
[2017-04-06] MEDS ORDERED: DO NOT ADM ANY ANTICOAGULANT DRUGS PRN (21:00)
[2017-04-06 21:42] VITALS: O2SAT 95
[2017-04-06] MEDS: LACTATED RINGER'S 1000 ML INJ 1,000 ML IV SCH (23:30)
[2017-04-07] VITALS (8 sets, daily range): BP systolic 142–174; BP diastolic 68–95; PULSE 83–107; RESP 19–24; TEMP 96.6–98.9; O2SAT 92–97
[2017-04-07] MEDS: ONDANSETRON HCL 4 MG/2 ML VIAL IVP PRN (04:23)
[2017-04-07] MEDS: MORPHINE SULFATE 4 MG/ML INJ IV PUSH PRN ×2 (04:23→21:19)
[2017-04-07] MEDS: ENALAPRILAT 1.25 MG/ML VIAL IV PUSH PRN (04:24)
[2017-04-07] MEDS: metroNIDAZOLE 500 MG INJ 100 ML IV SCH ×3 (04:43→20:26)
[2017-04-07] MEDS: CIPROFLOXACIN 400 MG PREMIX 200 ML IV SCH ×2 (05:34→17:56)
[2017-04-07] MEDS: LACTATED RINGER'S 1000 ML INJ 1,000 ML IV SCH ×3 (05:35→15:30)
[2017-04-07 05:55] LABS: BASOPHIL # 0.1 TH/MM3 (0-0.2); BASOPHIL % 0.5 % (0.0-2.0); EOSINOPHIL % 0.1 % (0.0-4.0); HEMATOCRIT 40.5 % (35.0-46.0); HEMO FLAGS DIFF FINAL; LYMPHOCYTE # 1.2 TH/MM3 (1.0-4.8); MEAN CELL VOLUME 86.9 FL (80.0-100.0); MEAN CORPUSCULAR HEMOGLOBIN 28.4 PG (27.0-34.0); MEAN CORPUSCULAR HGB CONC 32.7 % (32.0-36.0); MONO % 4.3 % (0.0-8.0); NEUT % 85.1 % (16.0-70.0); PLATELET COUNT 216 TH/MM3 (150-450); RED BLOOD COUNT 4.66 MIL/MM3 (4.00-5.30); RED CELL DISTRIBUTION WIDTH 13.4 % (11.6-17.2); WHITE BLOOD COUNT 11.7 TH/MM3 (4.0-11.0)
[2017-04-07] MEDS: LEVOTHYROXINE SODIUM 112 MCG TAB PO SCH (06:00)
[2017-04-07 06:17] LABS: BICARBONATE 26.1 MEQ/L (21.0-32.0); POTASSIUM 3.9 MEQ/L (3.5-5.1)
[2017-04-07] MEDS: SODIUM CHLORIDE 0.9% FLUSH 10 ML FLUSH IV FLUSH SCH ×2 (09:00→20:25)
[2017-04-07] MEDS: ENALAPRIL MALEATE 10 MG TAB PO SCH ×2 (09:00→20:27)
[2017-04-07] MEDS: POLYETHYLENE GLYCOL 17 GM PKG PO SCH (09:00)
--- NOTE | 2017-04-07 09:33 | HHI.PR ---
Subjective Remarks Follow-up Enteritis/UTI 04/04/17-patient seen and examined, states she was having some dry heaves last night mom states she is unable to drink the prep for colonoscopy. Son By the Bedside 04/05/17-patient seen and examined, reports multiple episodes of emesis. 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 CT abdomen/pelvics with finding of small bowel obstruction versus ileus 04/06/17-patient seen and examined, complains of abdominal pain currently denies any nausea. States she hasn't had a bowel movement since admission 04/07/17-patient seen and examined, denies any significant abdominal pain, NG tube with high output. Afebrile Objective Vitals Vital Signs Date Time Temp Pulse Resp B/P (MAP) Pulse Ox O2 Delivery O2 Flow Rate FiO2 04/07/17 08:21 96 Nasal Cannula 3.00 04/07/17 04:00 98.6 91 24 156/71 (99) 93 04/07/17 00:00 98.6 86 20 174/75 (108) 95 04/06/17 21:42 95 Nasal Cannula 3.00 04/06/17 20:15 86 18 137/67 (90) 96 Nasal Cannula 4 04/06/17 20:00 98.7 92 25 156/76 (102) 95 04/06/17 19:30 77 18 144/69 (94) 96 Nasal Cannula 4 04/06/17 18:30 82 18 152/61 (91) 95 Nasal Cannula 4 04/06/17 17:30 77 18 136/61 (86) 95 Nasal Cannula 4 04/06/17 16:30 74 18 160/65 (96) 94 Nasal Cannula 4 04/06/17 16:15 78 18 152/72 (98) 95 Nasal Cannula 4 04/06/17 16:00 85 18 172/70 (104) 95 Nasal Cannula 4 04/06/17 15:45 81 18 172/76 (108) 93 Nasal Cannula 4 04/06/17 15:26 98.5 90 18 172/76 (108) 96 Simple Mask 10 04/06/17 12:00 98.8 103 20 156/73 (100) 92 I/O 04/06/17 04/06/17 04/06/17 04/07/17 04/07/17 04/07/17 06:59 14:59 22:59 06:59 14:59 22:59 Intake Total 1250 ml 1589 ml Output Total 1100 ml 50 ml 780 ml 700 ml Balance -1100 ml -50 ml 470 ml 889 ml IV Total 150 ml 1589 ml Other 1100 ml Output Urine Total 450 ml 650 ml Gastric Drainage Total 1100 ml 50 ml 300 ml 50 ml Estimated Blood Loss 30 ml # Voids 2 Result Diagram: 04/07/1740204/07/17402 Objective Remarks GENERAL: NAD with NG tube in place SKIN: Warm and dry. HEAD: Normocephalic. EYES: No scleral icterus. No injection or drainage. NECK: Supple, trachea midline. No JVD or lymphadenopathy. CARDIOVASCULAR: Regular rate and rhythm without murmurs, gallops, or rubs. RESPIRATORY: Breath sounds equal bilaterally. No accessory muscle use. GASTROINTESTINAL: Abdomen soft, non-tender, nondistended. Incision c/d/i MUSCULOSKELETAL: No cyanosis, or edema. BACK: Nontender without obvious deformity. No CVA tenderness. Procedures Diagnostic laparoscopy with laparoscopic lysis of adhesions 04/06/17 A/P Problem List: (1) Enteritis ICD Code: K52.9 - Noninfective gastroenteritis and colitis, unspecified (2) Adynamic ileus ICD Code: K56.0 - Paralytic ileus (3) Small bowel obstruction, partial ICD Code: K56.69 - Other intestinal obstruction Assessment and Plan 86-year-old female with Partial small bowel obstruction CT abdomen with finding of partial small bowel obstruction versus severe adynamic ileus Status post Diagnostic laparoscopy with laparoscopic lysis of adhesions 04/06 Appreciate input from general surgery Currently nothing by mouth, continue NG tube Enteritis - CT abd/pelvis revealed several abnormally thickened loops of small bowel in the right lower quadrant with fat stranding and small amount of free fluid - Panendoscopy postponed as patient unable to tolerate prep - Continue on IV Cipro and Metronidazole - Continue pain management - Currently nothing by mouth UTI - UC negative Leukocytosis - Resolved Hyperglycemia - Hemoglobin A1c 5.6 Hypertension - Continue patient's home dose of Enalapril 20 mg twice a day - hydralazine and vasotec prn - Monitor BP Hypothyroidism - Continue patient's home dose of levothyroxine 112 mcg daily Dyslipidemia - Continue patient's home dose of simvastatin 40 mg daily DVT prophylaxis - Bilateral SCD/MARYBEL hose - Heparin sq Pontey,Jonah MD Apr 07, 2017 09:33
--- NOTE | 2017-04-07 10:31 | HHI.PR ---
Subjective Subjective Notes Resting in bed Wants to get up today No pain Objective Vitals/I&O Vital Signs Date Time Temp Pulse Resp B/P (MAP) Pulse Ox O2 Delivery O2 Flow Rate FiO2 04/07/17 08:21 96 Nasal Cannula 3.00 04/07/17 08:00 98.6 83 20 143/70 (94) Labs Laboratory Tests Test 04/06/17 16:18 04/06/17 21:12 04/07/17 04:03 Blood Urea Nitrogen 17 16 Creatinine 0.73 0.48 Random Glucose 117 81 Calcium Level 7.8 8.2 Sodium Level 142 140 Potassium Level 3.1 3.9 Chloride Level 103 104 Carbon Dioxide Level 34.8 26.1 Anion Gap 4 10 Estimat Glomerular Filtration Rate 76 123 Nasal Screen MRSA (PCR) MRSA NOT DETECTED White Blood Count 11.7 Red Blood Count 4.66 Hemoglobin 13.3 Hematocrit 40.5 Mean Corpuscular Volume 86.9 Mean Corpuscular Hemoglobin 28.4 Mean Corpuscular Hemoglobin Concent 32.7 Red Cell Distribution Width 13.4 Platelet Count 216 Mean Platelet Volume 8.8 Neutrophils (%) (Auto) 85.1 Lymphocytes (%) (Auto) 10.0 Monocytes (%) (Auto) 4.3 Eosinophils (%) (Auto) 0.1 Basophils (%) (Auto) 0.5 Neutrophils # (Auto) 10.0 Lymphocytes # (Auto) 1.2 Monocytes # (Auto) 0.5 Eosinophils # (Auto) 0.0 Basophils # (Auto) 0.1 CBC Comment DIFF FINAL Differential Comment Date/Time Source Procedure Growth Status 04/02/17 04:30 Urine Catheterized Urine Urine Culture - Final NO GROWTH IN 48 HOURS. Complete Cardiovascular: Regular Lungs: Clear Abdomen: Other (soft; minimally tender; lap sites c/d/i ) Extremities: No edema A/P Assessment and Plan 86 year old female with abdominal pain; POD1 lap MARTITA -NPO; okay for a few ice chips -OOB; PT consult -NGT to LIWS; okay to clamp when ambulating -IVF -Transfer to N Attending Note - Dr. Kunal CHAVEZ causing severe nose pain Wants Costa out Abdomen still distended but nontender; no flatus yet Will D/C costa and NG; keep NPO until bowel function returns The exam, history, and the medical decision-making described in the above note were completed with the assistance of the mid-level provider. I reviewed and agree with the findings presented. I attest that I had a [id number] encounter with the patient on the same day, and personally performed and documented my assessment and findings in the medical record. Sindy Bernal Apr 07, 2017 10:31 Nestor Syed MD Apr 07, 2017 14:11
--- NOTE | 2017-04-07 11:53 | EKG ---
Date Performed: 04/06/2017 Time Performed: 12:56:13 PTAGE: 86 years EKG: Sinus rhythm WITH OCCASIONAL VENTRICULAR PREMATURE COMPLEXES BORDERLINE ECG PREVIOUS TRACING : 05/04/1994 07.49 No significant change from previous tracing noted. DOCTOR: Sanford Sorto Interpretating Date/Time 04/07/2017 11:50:56
[2017-04-07] MEDS: PRAVASTATIN SOD 80 MG TAB PO SCH (20:27)
[2017-04-07] MEDS: HEPARIN SODIUM - SQ 10,000 UNITS/ML VIAL SQ SCH (20:27)
[2017-04-08] VITALS (7 sets, daily range): BP systolic 116–170; BP diastolic 51–76; PULSE 79–91; RESP 18–20; TEMP 97–99.3; O2SAT 92–95
[2017-04-08] MEDS: HEPARIN SODIUM - SQ 10,000 UNITS/ML VIAL SQ SCH ×3 (06:00→20:04)
[2017-04-08] MEDS: CIPROFLOXACIN 400 MG PREMIX 200 ML IV SCH ×2 (06:05→18:14)
[2017-04-08] MEDS: LEVOTHYROXINE SODIUM 112 MCG TAB PO SCH (06:07)
[2017-04-08] MEDS: metroNIDAZOLE 500 MG INJ 100 ML IV SCH ×3 (06:08→20:02)
[2017-04-08] MEDS: LACTATED RINGER'S 1000 ML INJ 1,000 ML IV SCH ×3 (06:12→20:12)
[2017-04-08 08:22] LABS: BICARBONATE 27.8 MEQ/L (21.0-32.0); POTASSIUM 3.4 MEQ/L (3.5-5.1)
[2017-04-08] MEDS: SODIUM CHLORIDE 0.9% FLUSH 10 ML FLUSH IV FLUSH SCH ×2 (09:00→20:03)
--- NOTE | 2017-04-08 09:11 | HHI.PR ---
Subjective Subjective Notes wants to eat, denies N/V, no BM yet, ambulating in halls Objective Vitals/I&O Vital Signs Date Time Temp Pulse Resp B/P (MAP) Pulse Ox O2 Delivery O2 Flow Rate FiO2 04/08/17 08:00 98.3 90 18 145/69 (94) 95 04/07/17 08:21 Nasal Cannula 3.00 Labs Laboratory Tests Test 04/08/17 07:03 Blood Urea Nitrogen 20 Creatinine 0.50 Random Glucose 95 Calcium Level 7.0 Sodium Level 141 Potassium Level 3.4 Chloride Level 107 Carbon Dioxide Level 27.8 Anion Gap 6 Estimat Glomerular Filtration Rate 118 Date/Time Source Procedure Growth Status 04/02/17 04:30 Urine Catheterized Urine Urine Culture - Final NO GROWTH IN 48 HOURS. Complete Abdomen: Non-tender, BS normal Wound Wound : Wound Location: Abdomen Appearance: Clean & Dry A/P Assessment and Plan POD2 lap MARTITA will try sips of clears per patient request will HL IV if tolerates correct k Alex Hughes MD Apr 08, 2017 09:11
[2017-04-08 09:21] LABS: CALCIUM-PROTEIN CORRECTED 8.1 MG/DL (8.5-10.1)
[2017-04-08] MEDS: POLYETHYLENE GLYCOL 17 GM PKG PO SCH (09:49)
[2017-04-08] MEDS: ENALAPRIL MALEATE 10 MG TAB PO SCH ×2 (09:50→20:02)
[2017-04-08] MEDS: POTASSIUM CHLOR 20 MEQ PREMIX 100 ML IV SCH ×2 (10:04→12:17)
--- NOTE | 2017-04-08 11:56 | HHI.PR ---
Subjective Remarks Follow-up Enteritis/UTI/partial bowel obstruction 04/04/17-patient seen and examined, states she was having some dry heaves last night mom states she is unable to drink the prep for colonoscopy. Son By the Bedside 04/05/17-patient seen and examined, reports multiple episodes of emesis. 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 CT abdomen/pelvics with finding of small bowel obstruction versus ileus 04/06/17-patient seen and examined, complains of abdominal pain currently denies any nausea. States she hasn't had a bowel movement since admission 04/07/17-patient seen and examined, denies any significant abdominal pain, NG tube with high output. Afebrile 04/08/17-patient seen and examined, NG tube was removed last night patient denies any abdominal pain. She denies any flatus or BM. She want her diet to be advanced today. Objective Vitals Vital Signs Date Time Temp Pulse Resp B/P (MAP) Pulse Ox O2 Delivery O2 Flow Rate FiO2 04/08/17 08:00 98.3 90 18 145/69 (94) 95 04/08/17 04:08 97.0 79 18 116/62 (80) 92 04/08/17 00:00 99.3 89 18 127/51 (76) 93 04/07/17 22:08 92 04/07/17 20:00 98.9 94 20 142/68 (92) 93 04/07/17 16:00 98.3 107 19 167/95 (119) 92 04/07/17 12:00 96.6 89 19 157/81 (106) 97 I/O 04/07/17 04/07/17 04/07/17 04/08/17 04/08/17 04/08/17 07:00 15:00 23:00 07:00 15:00 23:00 Intake Total 1589 ml 0 ml 546 ml 0 ml Output Total 700 ml 400 ml Balance 889 ml -400 ml 546 ml 0 ml Intake Oral 0 ml 0 ml 0 ml IV Total 1589 ml 546 ml Output Urine Total 650 ml 400 ml Gastric Drainage Total 50 ml # Bowel Movements 0 Result Diagram: 04/07/17 0403 04/08/17 0703 Objective Remarks GENERAL: NAD SKIN: Warm and dry. HEAD: Normocephalic. EYES: No scleral icterus. No injection or drainage. NECK: Supple, trachea midline. No JVD or lymphadenopathy. CARDIOVASCULAR: Regular rate and rhythm without murmurs, gallops, or rubs. RESPIRATORY: Breath sounds equal bilaterally. No accessory muscle use. GASTROINTESTINAL: Abdomen soft, non-tender, nondistended. Incision c/d/i MUSCULOSKELETAL: No cyanosis, or edema. BACK: Nontender without obvious deformity. No CVA tenderness. Procedures Diagnostic laparoscopy with laparoscopic lysis of adhesions 04/06/17 A/P Problem List: (1) Enteritis ICD Code: K52.9 - Noninfective gastroenteritis and colitis, unspecified (2) Adynamic ileus ICD Code: K56.0 - Paralytic ileus (3) Small bowel obstruction, partial ICD Code: K56.69 - Other intestinal obstruction Assessment and Plan 86-year-old female with Partial small bowel obstruction CT abdomen with finding of partial small bowel obstruction versus severe adynamic ileus Status post Diagnostic laparoscopy with laparoscopic lysis of adhesions 04/06 Appreciate input from general surgery Advance diet as tolerated Enteritis -resolved - CT abd/pelvis revealed several abnormally thickened loops of small bowel in the right lower quadrant with fat stranding and small amount of free fluid - Panendoscopy postponed as patient unable to tolerate prep - Continue with IV Cipro and Metronidazole until tomorrow - Continue pain management UTI - UC negative Leukocytosis - Resolved Hyperglycemia - Hemoglobin A1c 5.6 Hypertension - Continue patient's home dose of Enalapril 20 mg twice a day - hydralazine and vasotec prn - Monitor BP Hypothyroidism - Continue patient's home dose of levothyroxine 112 mcg daily Dyslipidemia - Continue patient's home dose of simvastatin 40 mg daily DVT prophylaxis - Bilateral SCD/MARYBEL hose - Heparin sq Jonah Juarez MD Apr 08, 2017 11:56
[2017-04-08] MEDS: MORPHINE SULFATE 4 MG/ML INJ IV PUSH PRN (18:17)
[2017-04-08] MEDS: PRAVASTATIN SOD 80 MG TAB PO SCH (20:01)
[2017-04-09] VITALS: BP 129/62; PULSE 78; RESP 18; TEMP 98; O2SAT 95
[2017-04-09 04:00] VITALS: BP 131/63; PULSE 80; RESP 18; TEMP 98.4; O2SAT 93
[2017-04-09] MEDS: CIPROFLOXACIN 400 MG PREMIX 200 ML IV SCH (05:56)
[2017-04-09] MEDS: metroNIDAZOLE 500 MG INJ 100 ML IV SCH (05:58)
[2017-04-09] MEDS: LEVOTHYROXINE SODIUM 112 MCG TAB PO SCH (05:58)
[2017-04-09] MEDS: HEPARIN SODIUM - SQ 10,000 UNITS/ML VIAL SQ SCH ×3 (05:58→20:34)
[2017-04-09 08:00] VITALS: BP 154/84; PULSE 85; RESP 20; TEMP 97.8; O2SAT 95
[2017-04-09 08:48] LABS: BICARBONATE 27.1 MEQ/L (21.0-32.0); POTASSIUM 3.4 MEQ/L (3.5-5.1)
[2017-04-09] MEDS: POLYETHYLENE GLYCOL 17 GM PKG PO SCH (09:32)
[2017-04-09] MEDS: SODIUM CHLORIDE 0.9% FLUSH 10 ML FLUSH IV FLUSH SCH ×2 (09:32→20:34)
[2017-04-09] MEDS: ENALAPRIL MALEATE 10 MG TAB PO SCH ×2 (09:32→20:33)
--- NOTE | 2017-04-09 10:28 | HHI.PR ---
Subjective Remarks Follow-up Enteritis/UTI/partial bowel obstruction 04/04/17-patient seen and examined, states she was having some dry heaves last night mom states she is unable to drink the prep for colonoscopy. Son By the Bedside 04/05/17-patient seen and examined, reports multiple episodes of emesis. 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 CT abdomen/pelvics with finding of small bowel obstruction versus ileus 04/06/17-patient seen and examined, complains of abdominal pain currently denies any nausea. States she hasn't had a bowel movement since admission 04/07/17-patient seen and examined, denies any significant abdominal pain, NG tube with high output. Afebrile 04/08/17-patient seen and examined, NG tube was removed last night patient denies any abdominal pain. She denies any flatus or BM. She want her diet to be advanced today. 04/09/17-patient seen and examined, denies any significant abdominal pain. No BM yet Objective Vitals Vital Signs Date Time Temp Pulse Resp B/P (MAP) Pulse Ox O2 Delivery O2 Flow Rate FiO2 04/09/17 08:00 97.8 85 20 154/84 (107) 95 04/09/17 04:00 98.4 80 18 131/63 (85) 93 04/09/17 00:00 98.0 78 18 129/62 (84) 95 04/08/17 20:00 98.4 79 18 123/59 (80) 93 04/08/17 16:00 98.7 91 20 151/67 (95) 95 04/08/17 12:00 97.7 80 19 170/76 (107) 95 I/O 04/08/17 04/08/17 04/08/17 04/09/17 04/09/17 04/09/17 07:00 15:00 23:00 07:00 15:00 23:00 Intake Total 546 ml 0 ml 1356 ml 670 ml 120 ml Output Total 950 ml Balance 546 ml 0 ml 406 ml 670 ml 120 ml Intake Oral 0 ml 0 ml 120 ml IV Total 546 ml 1356 ml 670 ml Output Urine Total 950 ml # Bowel Movements 0 Result Diagram: 04/07/17 0403 04/09/17 0735 Objective Remarks GENERAL: NAD SKIN: Warm and dry. HEAD: Normocephalic. EYES: No scleral icterus. No injection or drainage. NECK: Supple, trachea midline. No JVD or lymphadenopathy. CARDIOVASCULAR: Regular rate and rhythm without murmurs, gallops, or rubs. RESPIRATORY: Breath sounds equal bilaterally. No accessory muscle use. GASTROINTESTINAL: Abdomen soft, non-tender, nondistended. Incision c/d/i MUSCULOSKELETAL: No cyanosis, or edema. BACK: Nontender without obvious deformity. No CVA tenderness. Procedures Diagnostic laparoscopy with laparoscopic lysis of adhesions 04/06/17 A/P Problem List: (1) Enteritis ICD Code: K52.9 - Noninfective gastroenteritis and colitis, unspecified (2) Adynamic ileus ICD Code: K56.0 - Paralytic ileus (3) Small bowel obstruction, partial ICD Code: K56.69 - Other intestinal obstruction Assessment and Plan 86-year-old female with Partial small bowel obstruction CT abdomen with finding of partial small bowel obstruction versus severe adynamic ileus Status post Diagnostic laparoscopy with laparoscopic lysis of adhesions 04/06 Appreciate input from general surgery Advance diet as tolerated Enteritis -resolved - CT abd/pelvis revealed several abnormally thickened loops of small bowel in the right lower quadrant with fat stranding and small amount of free fluid - Panendoscopy postponed as patient unable to tolerate prep - Changed to by mouth Cipro and Metronidazole - Continue pain management UTI - UC negative Leukocytosis - Resolved Hyperglycemia - Hemoglobin A1c 5.6 Hypertension - Continue patient's home dose of Enalapril 20 mg twice a day - hydralazine and vasotec prn - Monitor BP Hypothyroidism - Continue patient's home dose of levothyroxine 112 mcg daily Dyslipidemia - Continue patient's home dose of simvastatin 40 mg daily DVT prophylaxis - Bilateral SCD/MARYBEL hose - Heparin sq Jonah Juarez MD Apr 09, 2017 10:28
--- NOTE | 2017-04-09 11:08 | HHI.PR ---
Subjective Subjective Notes DAILY PROGRESS NOTE FOR SURGICAL ATTENDING, DR. EFRA STRINGER I don't like my IV it hurts my hand I like more to eat Objective Vitals/I&O Vital Signs Date Time Temp Pulse Resp B/P (MAP) Pulse Ox O2 Delivery O2 Flow Rate FiO2 04/09/17 08:00 97.8 85 20 154/84 (107) 95 04/07/17 08:21 Nasal Cannula 3.00 Labs Laboratory Tests Test 04/09/17 07:35 Blood Urea Nitrogen 11 Creatinine 0.49 Random Glucose 102 Calcium Level 7.9 Sodium Level 138 Potassium Level 3.4 Chloride Level 105 Carbon Dioxide Level 27.1 Anion Gap 6 Estimat Glomerular Filtration Rate 120 Date/Time Source Procedure Growth Status 04/02/17 04:30 Urine Catheterized Urine Urine Culture - Final NO GROWTH IN 48 HOURS. Complete Radiology Last Impressions Chest X-Ray 9/7/17 0000 Signed Impressions: Service Date/Time: March 15:58 - CONCLUSION: 1. Minimal bibasilar streakiness consistent with atelectasis and/or mild developing infiltrates. 2. Cardiomegaly. 3. Degenerative changes and scoliosis of the thoracic spine. Tim Gomez MD Abdomen X-Ray 04/05/17 0000 Signed Impressions: Service Date/Time: Wednesday, April 05, 2017 14:11 - CONCLUSION: 1. No dilated loops of small or large bowel. 2. Probable right pleural effusion. Jeovanny Walters MD Abdomen/Pelvis CT 04/04/17 0000 Signed Impressions: Service Date/Time: Tuesday, April 04, 2017 22:28 - CONCLUSION: 1. Interval development of fluid-filled diffusely distended small bowel with transition point in the right lower quadrant in the distal ileum. No evidence for bowel infarction or perforation at this time. Findings are most consistent with developing small bowel obstruction versus developing moderate to severe adynamic ileus. 2. Interval development of small bilateral, right greater then left, pleural effusions and trace ascites. Wai Ontiveros MD Lungs: Clear Abdomen: Post-op tenderness, BS normal Extremities: Other (edema bilateral lower extremities) Narrative Exam Patient ambulating in room Complaints of swelling in her lower extremities and upper extremities Would like more to eat A/P Problem List: (1) Status post laparoscopic procedure ICD Codes: Z98.890 - Other specified postprocedural states Permanent Comment: Patient had a laparoscopic lysis of adhesions Last Edited By: Efra Stringer on Apr 09, 2017 11:07 (2) Adynamic ileus ICD Codes: K56.0 - Paralytic ileus (3) Small bowel obstruction, partial ICD Codes: K56.69 - Other intestinal obstruction Assessment and Plan 86-year-old female status post laparoscopic lysis of adhesions Tolerating clear would like more to eat Passing flatus Bilateral lower extremity edema We'll Hep-Lock IV Attending Statement NOTE FOR SURGICAL ATTENDING, DR. EFRA STRINGER I attest that I had a [id number] encounter with the patient on the same day, and personally performed and documented my assessment and findings in the medical record. The following services were provided during this hospital visit: Chart data review, vital sign assessments/reviewing monitor data Review of consultations notes if present. Medication orders/review and/or management Ordering and/or reviewing lab tests Ordering and/or interpreting/reviewing x-rays and/or diagnostic studies Care of the patient and discussion of the patient with the care team Documentation time To help prompt me to consider important information that might be impacting today's encounter and assessment, information from prior notes written by myself or my colleagues may have been "brought forward/copy and pasted" into today's note. Efra Stringer MD Apr 09, 2017 11:08
[2017-04-09 12:00] VITALS: BP 153/72; PULSE 97; RESP 19; TEMP 96.9; O2SAT 95
[2017-04-09] MEDS ORDERED: metroNIDAZOLE 500 MG TAB PO SCH (14:00)
[2017-04-09 16:00] VITALS: BP_SYST 149; PULSE 82; RESP 19; TEMP 98.9; O2SAT 95
[2017-04-09 20:00] VITALS: BP 161/99; PULSE 101; RESP 18; TEMP 98.5; O2SAT 96
[2017-04-09] MEDS: PRAVASTATIN SOD 80 MG TAB PO SCH (20:33)
[2017-04-09] MEDS: CIPROFLOXACIN 500 MG TAB PO SCH (20:33)
[2017-04-10] VITALS: BP 133/62; PULSE 84; RESP 18; TEMP 98.8; O2SAT 95
[2017-04-10] MEDS: LEVOTHYROXINE SODIUM 112 MCG TAB PO SCH (04:59)
[2017-04-10] MEDS: HEPARIN SODIUM - SQ 10,000 UNITS/ML VIAL SQ SCH ×3 (05:01→20:45)
[2017-04-10 06:57] LABS: AUTOMATED NEUTROPHIL # 5.5 TH/MM3 (1.8-7.7); BASOPHIL # 0.1 TH/MM3 (0-0.2); BASOPHIL % 0.9 % (0.0-2.0); EOSINOPHIL # 0.2 TH/MM3 (0-0.4); EOSINOPHIL % 2.7 % (0.0-4.0); HEMATOCRIT 36.3 % (35.0-46.0); HEMO FLAGS DIFF FINAL; LYMPH % 21.1 % (9.0-44.0); LYMPHOCYTE # 1.8 TH/MM3 (1.0-4.8); MEAN CORPUSCULAR HEMOGLOBIN 28.8 PG (27.0-34.0); MEAN CORPUSCULAR HGB CONC 33.5 % (32.0-36.0); MONO % 9.4 % (0.0-8.0); NEUT % 65.9 % (16.0-70.0); PLATELET COUNT 197 TH/MM3 (150-450); RED BLOOD COUNT 4.23 MIL/MM3 (4.00-5.30); RED CELL DISTRIBUTION WIDTH 13.1 % (11.6-17.2); WHITE BLOOD COUNT 8.4 TH/MM3 (4.0-11.0)
[2017-04-10 07:06] LABS: BICARBONATE 28.2 MEQ/L (21.0-32.0); POTASSIUM 3.2 MEQ/L (3.5-5.1)
[2017-04-10 08:00] VITALS: BP 170/86; PULSE 93; RESP 20; TEMP 98.3; O2SAT 95
[2017-04-10] MEDS: ENALAPRIL MALEATE 10 MG TAB PO SCH ×2 (08:46→20:44)
[2017-04-10] MEDS: CIPROFLOXACIN 500 MG TAB PO SCH ×2 (08:46→20:44)
[2017-04-10] MEDS: POLYETHYLENE GLYCOL 17 GM PKG PO SCH (08:46)
[2017-04-10] MEDS: SODIUM CHLORIDE 0.9% FLUSH 10 ML FLUSH IV FLUSH SCH ×2 (08:47→20:44)
[2017-04-10] MEDS ORDERED: POTASSIUM CHLORIDE 10 MEQ CONTROLLED RELEASE TAB PO ONE (09:15)
[2017-04-10] MEDS ORDERED: hydrALAZINE HCL 25 MG TAB PO ONE (09:15)
--- NOTE | 2017-04-10 09:18 | HHI.PR ---
Subjective Remarks Follow-up Enteritis/UTI/partial bowel obstruction 04/04/17-patient seen and examined, states she was having some dry heaves last night mom states she is unable to drink the prep for colonoscopy. Son By the Bedside 04/05/17-patient seen and examined, reports multiple episodes of emesis. 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 CT abdomen/pelvics with finding of small bowel obstruction versus ileus 04/06/17-patient seen and examined, complains of abdominal pain currently denies any nausea. States she hasn't had a bowel movement since admission 04/07/17-patient seen and examined, denies any significant abdominal pain, NG tube with high output. Afebrile 04/08/17-patient seen and examined, NG tube was removed last night patient denies any abdominal pain. She denies any flatus or BM. She want her diet to be advanced today. 04/09/17-patient seen and examined, denies any significant abdominal pain. No BM yet 04/10/17-patient seen and examined, reports BM and denies any significant abdominal pain. Potassium 3.2 and BP slightly up Objective Vitals Vital Signs Date Time Temp Pulse Resp B/P (MAP) Pulse Ox O2 Delivery O2 Flow Rate FiO2 04/10/17 08:00 98.3 93 20 170/86 (114) 95 04/10/17 00:00 98.8 84 18 133/62 (85) 95 04/09/17 20:00 98.5 101 18 161/99 (119) 96 04/09/17 16:00 98.9 82 19 149/ 95 04/09/17 12:00 96.9 97 19 153/72 (99) 95 I/O 04/09/17 04/09/17 04/09/17 04/10/17 04/10/17 04/10/17 07:00 15:00 23:00 07:00 15:00 23:00 Intake Total 670 ml 120 ml 421 ml 120 ml Balance 670 ml 120 ml 421 ml 120 ml Intake Oral 120 ml 120 ml IV Total 670 ml 421 ml Result Diagram: 04/10/1761204/10/17612 Objective Remarks GENERAL: NAD SKIN: Warm and dry. HEAD: Normocephalic. EYES: No scleral icterus. No injection or drainage. NECK: Supple, trachea midline. No JVD or lymphadenopathy. CARDIOVASCULAR: Regular rate and rhythm without murmurs, gallops, or rubs. RESPIRATORY: Breath sounds equal bilaterally. No accessory muscle use. GASTROINTESTINAL: Abdomen soft, non-tender, nondistended. Incision c/d/i MUSCULOSKELETAL: No cyanosis, or edema. BACK: Nontender without obvious deformity. No CVA tenderness. Procedures Diagnostic laparoscopy with laparoscopic lysis of adhesions 04/06/17 A/P Problem List: (1) Enteritis ICD Code: K52.9 - Noninfective gastroenteritis and colitis, unspecified (2) Adynamic ileus ICD Code: K56.0 - Paralytic ileus (3) Small bowel obstruction, partial ICD Code: K56.69 - Other intestinal obstruction Assessment and Plan 86-year-old female with Partial small bowel obstruction CT abdomen with finding of partial small bowel obstruction versus severe adynamic ileus Status post Diagnostic laparoscopy with laparoscopic lysis of adhesions 04/06 Appreciate input from general surgery Advance diet as tolerated; currently on full liquid diet Enteritis -resolved - CT abd/pelvis revealed several abnormally thickened loops of small bowel in the right lower quadrant with fat stranding and small amount of free fluid - Panendoscopy postponed as patient unable to tolerate prep - Discontinue all antibiotics including Cipro and Metronidazole - Continue pain management UTI - UC negative Leukocytosis - Resolved Hyperglycemia - Hemoglobin A1c 5.6 Hypertension -Labile BP, give hydralazine 25 mg by mouth 1 now - Continue patient's home dose of Enalapril 20 mg twice a day - hydralazine and vasotec prn - Monitor BP Hypothyroidism - Continue patient's home dose of levothyroxine 112 mcg daily Hypokalemia Give potassium 60 mEq 1 now and monitor K Dyslipidemia - Continue patient's home dose of simvastatin 40 mg daily DVT prophylaxis - Bilateral SCD/MARYBEL hose - Heparin sq Jonah Juarez MD Apr 10, 2017 09:18
[2017-04-10 12:12] VITALS: BP 137/67; PULSE 92; RESP 20; TEMP 98.3
[2017-04-10 16:00] VITALS: BP 134/61; PULSE 89; RESP 20; TEMP 97.6; O2SAT 96
--- NOTE | 2017-04-10 19:59 | HHI.PR ---
Subjective Subjective Notes some crampy gas pain Objective Vitals/I&O Vital Signs Date Time Temp Pulse Resp B/P (MAP) Pulse Ox O2 Delivery O2 Flow Rate FiO2 04/10/17 16:00 97.6 89 20 134/61 (85) 96 04/07/17 08:21 Nasal Cannula 3.00 Labs Laboratory Tests Test 04/10/17 06:13 White Blood Count 8.4 Red Blood Count 4.23 Hemoglobin 12.2 Hematocrit 36.3 Mean Corpuscular Volume 86.0 Mean Corpuscular Hemoglobin 28.8 Mean Corpuscular Hemoglobin Concent 33.5 Red Cell Distribution Width 13.1 Platelet Count 197 Mean Platelet Volume 9.5 Neutrophils (%) (Auto) 65.9 Lymphocytes (%) (Auto) 21.1 Monocytes (%) (Auto) 9.4 Eosinophils (%) (Auto) 2.7 Basophils (%) (Auto) 0.9 Neutrophils # (Auto) 5.5 Lymphocytes # (Auto) 1.8 Monocytes # (Auto) 0.8 Eosinophils # (Auto) 0.2 Basophils # (Auto) 0.1 CBC Comment DIFF FINAL Differential Comment Blood Urea Nitrogen 5 Creatinine 0.38 Random Glucose 93 Calcium Level 8.1 Sodium Level 138 Potassium Level 3.2 Chloride Level 103 Carbon Dioxide Level 28.2 Anion Gap 7 Estimat Glomerular Filtration Rate 161 Date/Time Source Procedure Growth Status 04/02/17 04:30 Urine Catheterized Urine Urine Culture - Final NO GROWTH IN 48 HOURS. Complete Radiology Last Impressions Chest X-Ray 04/06/17 0000 Signed Impressions: Service Date/Time: March 15:58 - CONCLUSION: 1. Minimal bibasilar streakiness consistent with atelectasis and/or mild developing infiltrates. 2. Cardiomegaly. 3. Degenerative changes and scoliosis of the thoracic spine. Tim Gomez MD Abdomen X-Ray 04/05/17 0000 Signed Impressions: Service Date/Time: Wednesday, April 05, 2017 14:11 - CONCLUSION: 1. No dilated loops of small or large bowel. 2. Probable right pleural effusion. Jeovanny Walters MD Abdomen/Pelvis CT 04/04/17 0000 Signed Impressions: Service Date/Time: Tuesday, April 04, 2017 22:28 - CONCLUSION: 1. Interval development of fluid-filled diffusely distended small bowel with transition point in the right lower quadrant in the distal ileum. No evidence for bowel infarction or perforation at this time. Findings are most consistent with developing small bowel obstruction versus developing moderate to severe adynamic ileus. 2. Interval development of small bilateral, right greater then left, pleural effusions and trace ascites. Wai Ontiveros MD Abdomen: Non-distended, Post-op tenderness A/P Problem List: (1) Status post laparoscopic procedure ICD Codes: Z98.890 - Other specified postprocedural states Permanent Comment: Patient had a laparoscopic lysis of adhesions Last Edited By: Efra Stringer on Apr 09, 2017 11:07 (2) Adynamic ileus ICD Codes: K56.0 - Paralytic ileus (3) Small bowel obstruction, partial ICD Codes: K56.69 - Other intestinal obstruction Assessment and Plan 86yo female s/p MARTITA for SBO, doing well. tolerating fulls, has multiple BM advance diet possibly DC next 24h Mazin Gallego MD Apr 10, 2017 19:59
[2017-04-10 20:00] VITALS: BP 181/83; PULSE 93; RESP 18; TEMP 98.7; O2SAT 97
[2017-04-10] MEDS: PRAVASTATIN SOD 80 MG TAB PO SCH (20:44)
[2017-04-10] MEDS: ENALAPRILAT 1.25 MG/ML VIAL IV PUSH PRN (20:44)
[2017-04-11] VITALS: BP 143/67; PULSE 84; RESP 18; TEMP 98.5; O2SAT 94
[2017-04-11] MEDS: HEPARIN SODIUM - SQ 10,000 UNITS/ML VIAL SQ SCH (06:00)
[2017-04-11] MEDS: LEVOTHYROXINE SODIUM 112 MCG TAB PO SCH (06:07)
[2017-04-11 06:10] LABS: BICARBONATE 28.7 MEQ/L (21.0-32.0); POTASSIUM 4.1 MEQ/L (3.5-5.1)
[2017-04-11 08:00] VITALS: BP 150/80; PULSE 86; RESP 16; TEMP 97.5; O2SAT 95
[2017-04-11] MEDS: SODIUM CHLORIDE 0.9% FLUSH 10 ML FLUSH IV FLUSH SCH (09:00)
[2017-04-11] MEDS: ENALAPRIL MALEATE 10 MG TAB PO SCH (09:31)
[2017-04-11] MEDS: CIPROFLOXACIN 500 MG TAB PO SCH (09:31)
[2017-04-11] MEDS: ACETAMINOPHEN/HYDROcodone 325 MG/7.5 MG TAB PO PRN (09:32)
[2017-04-11] MEDS: POLYETHYLENE GLYCOL 17 GM PKG PO SCH (09:33)
--- NOTE | 2017-04-11 09:41 | HHI.PR ---
Subjective Remarks Follow-up Enteritis/UTI/partial bowel obstruction 04/04/17-patient seen and examined, states she was having some dry heaves last night mom states she is unable to drink the prep for colonoscopy. Son By the Bedside 04/05/17-patient seen and examined, reports multiple episodes of emesis. 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 CT abdomen/pelvics with finding of small bowel obstruction versus ileus 04/06/17-patient seen and examined, complains of abdominal pain currently denies any nausea. States she hasn't had a bowel movement since admission 04/07/17-patient seen and examined, denies any significant abdominal pain, NG tube with high output. Afebrile 04/08/17-patient seen and examined, NG tube was removed last night patient denies any abdominal pain. She denies any flatus or BM. She want her diet to be advanced today. 04/09/17-patient seen and examined, denies any significant abdominal pain. No BM yet 04/10/17-patient seen and examined, reports BM and denies any significant abdominal pain. Potassium 3.2 and BP slightly up 04/11/17-patient seen and examined, reports significant improvement but abdominal pain. Positive for bowel movement. Case discussed with general surgery. Patient ready for discharge. Objective Vitals Vital Signs Date Time Temp Pulse Resp B/P (MAP) Pulse Ox O2 Delivery O2 Flow Rate FiO2 04/11/17 08:00 97.5 86 16 150/80 (103) 95 04/11/17 00:00 98.5 84 18 143/67 (92) 94 04/10/17 20:00 98.7 93 18 181/83 (115) 97 04/10/17 16:00 97.6 89 20 134/61 (85) 96 04/10/17 12:12 98.3 92 20 137/67 (90) I/O 04/10/17 04/10/17 04/10/17 04/11/17 04/11/17 04/11/17 07:00 15:00 23:00 07:00 15:00 23:00 Intake Total 120 ml 1200 ml Output Total 900 ml Balance 120 ml 300 ml Intake Oral 120 ml 1200 ml IV Total 0 ml Output Urine Total 900 ml # Voids 2 # Bowel Movements 1 Result Diagram: 04/10/1761212/17 0520 Objective Remarks GENERAL: NAD SKIN: Warm and dry. HEAD: Normocephalic. EYES: No scleral icterus. No injection or drainage. NECK: Supple, trachea midline. No JVD or lymphadenopathy. CARDIOVASCULAR: Regular rate and rhythm without murmurs, gallops, or rubs. RESPIRATORY: Breath sounds equal bilaterally. No accessory muscle use. GASTROINTESTINAL: Abdomen soft, non-tender, nondistended. Incision c/d/i MUSCULOSKELETAL: No cyanosis, or edema. BACK: Nontender without obvious deformity. No CVA tenderness. Procedures Diagnostic laparoscopy with laparoscopic lysis of adhesions 04/06/17 A/P Problem List: (1) Enteritis ICD Code: K52.9 - Noninfective gastroenteritis and colitis, unspecified (2) Adynamic ileus ICD Code: K56.0 - Paralytic ileus (3) Small bowel obstruction, partial ICD Code: K56.69 - Other intestinal obstruction Assessment and Plan 86-year-old female with Partial small bowel obstruction -resolved CT abdomen with finding of partial small bowel obstruction versus severe adynamic ileus Status post Diagnostic laparoscopy with laparoscopic lysis of adhesions 04/06 Appreciate input from general surgery Advance diet as tolerated Enteritis -resolved - CT abd/pelvis revealed several abnormally thickened loops of small bowel in the right lower quadrant with fat stranding and small amount of free fluid - Panendoscopy postponed as patient unable to tolerate prep - Discontinue all antibiotics including Cipro and Metronidazole - Continue pain management UTI - UC negative Leukocytosis - Resolved Hyperglycemia - Hemoglobin A1c 5.6 Hypertension - Continue patient's home dose of Enalapril 20 mg twice a day - hydralazine and vasotec prn - Monitor BP Hypothyroidism - Continue patient's home dose of levothyroxine 112 mcg daily Hypokalemia Improved status post replacement Dyslipidemia - Continue patient's home dose of simvastatin 40 mg daily DVT prophylaxis - Bilateral SCD/MARYBEL hose - Heparin sq Jonah Juarez MD Apr 11, 2017 09:41
--- NOTE | 2017-04-11 09:42 | HHI.DS ---
Discharge Summary Admission Date Apr 02, 2017 at 06:23 Discharge Date: Apr 11, 2017 Admitting Diagnosis Enteritis (1) Small bowel obstruction, partial ICD Code: K56.69 - Other intestinal obstruction (2) Adynamic ileus ICD Code: K56.0 - Paralytic ileus (3) Enteritis ICD Code: K52.9 - Noninfective gastroenteritis and colitis, unspecified Procedures Diagnostic laparoscopy with laparoscopic lysis of adhesions 04/06/17 Brief History - From Admission Written by Leny Mckeon PA-C acting as scribe for Dr. Franklin on 04/02/17 at 14 :13. This is an 86 yo female with PMHX significant for HTN, HLD, Hypothyroidism and Glaucoma who presents to [facility] ED with complaints of sudden onset of severe "20/10" abdominal pain with associated nausea for 1 day. Patient reports eating "junk food" all day yesterday and waking up at 1:30am with her "stomach on fire" that continued to progress prompting her to come into the ED. She tried taking some Tums and Excedrin at home without any benefit. She denies any vomiting but states she was gagging a lot. She denies any fever or chills. She denies any chest pain or shortness of breath. She denies any diarrhea or constipation. She reports prior colonoscopy 12 years ago with polypectomy x 2. She was started on Cipro and Metronidazole in the ED. She reports her abdominal pain is 2/10 now. She has not had any appetite. She denies any dysuria but reports frequent incontinence. In the ED, CT abd/pelvis obtained in the ED showed several abnormally thickened loops of small bowel in the right lower quadrant with fat stranding and small amount of free fluid. She is afebrile. Her white count was elevated at 15.7. UA is suggestive of a urinary tract infection. LFTs and lipase within normal limits. CBC/BMP: 04/10/17 0613 04/11/17 0520 Significant Findings Laboratory Tests Test 04/09/17 07:35 04/10/17 06:13 04/11/17 05:20 Creatinine 0.49 MG/DL (0.50-1.00) 0.38 MG/DL (0.50-1.00) Calcium Level 7.9 MG/DL (8.5-10.1) 8.1 MG/DL (8.5-10.1) 8.3 MG/DL (8.5-10.1) Potassium Level 3.4 MEQ/L (3.5-5.1) 3.2 MEQ/L (3.5-5.1) Monocytes (%) (Auto) 9.4 % (0.0-8.0) Blood Urea Nitrogen 5 MG/DL (7-18) 4 MG/DL (7-18) Chloride Level 108 MEQ/L (98-107) Anion Gap 4 MEQ/L (5-15) Imaging Last Impressions Chest X-Ray 04/06/17 0000 Signed Impressions: Service Date/Time: March 15:58 - CONCLUSION: 1. Minimal bibasilar streakiness consistent with atelectasis and/or mild developing infiltrates. 2. Cardiomegaly. 3. Degenerative changes and scoliosis of the thoracic spine. Tim Gomez MD Abdomen X-Ray 04/05/17 0000 Signed Impressions: Service Date/Time: Wednesday, April 05, 2017 14:11 - CONCLUSION: 1. No dilated loops of small or large bowel. 2. Probable right pleural effusion. Jeovanny Walters MD Abdomen/Pelvis CT 04/04/17 0000 Signed Impressions: Service Date/Time: Tuesday, April 04, 2017 22:28 - CONCLUSION: 1. Interval development of fluid-filled diffusely distended small bowel with transition point in the right lower quadrant in the distal ileum. No evidence for bowel infarction or perforation at this time. Findings are most consistent with developing small bowel obstruction versus developing moderate to severe adynamic ileus. 2. Interval development of small bilateral, right greater then left, pleural effusions and trace ascites. Wai Ontiveros MD PE at Discharge GENERAL: NAD SKIN: Warm and dry. HEAD: Normocephalic. EYES: No scleral icterus. No injection or drainage. NECK: Supple, trachea midline. No JVD or lymphadenopathy. CARDIOVASCULAR: Regular rate and rhythm without murmurs, gallops, or rubs. RESPIRATORY: Breath sounds equal bilaterally. No accessory muscle use. GASTROINTESTINAL: Abdomen soft, non-tender, nondistended. Incision c/d/i MUSCULOSKELETAL: No cyanosis, or edema. BACK: Nontender without obvious deformity. No CVA tenderness. Hospital Course Patient was admitted initially for Enteritis for which she was started on antibiotics with consultation to gastroenterology as well as general surgery. Although panendoscopy was plan however patient was unable to tolerate the prep. A CT abdomen and pelvis revealed partial small bowel obstruction versus adynamic ileus. Patient underwent diagnostic laparoscopy with lysis of adhesion on 04/06/17. Postoperatively, her condition improved on her diet was advanced accordingly. All electrolyte abnormality including hypokalemia were replaced accordingly. Blood pressure medications were adjusted accordingly. She was continued on her treatment for other chronic medical conditions. DVT and GI prophylaxis were provided. Prior to discharge, patient's condition improved and vital remained stable. Pt Condition on Discharge: Stable Discharge Disposition: Discharge Home Discharge Time: > 30 minutes Discharge Instructions DIET: Follow Instructions for: Heart Healthy Diet Activities you can perform: Regular-No Restrictions Follow up Referrals: PCP Follow-up - 1 Week Surgical - 04/18/17 with Nestor Syed MD Continued Medications: Enalapril (Enalapril) 20 Mg Tab 20 MG PO BID, #30 TAB 0 Refills Levothyroxine (Levothyroxine) 112 Mcg Tab 112 MCG PO DAILY for Thyroid, #30 TAB 0 Refills Simvastatin (Simvastatin) 40 Mg Tab 40 MG PO HS for Cholesterol Management, #30 TAB 0 Refills Jonah Juarez MD Apr 11, 2017 09:42
--- NOTE | 2017-04-11 10:33 | HHI.PR ---
Subjective Subjective Notes Sitting on the side of the bed Ready to go home JONAS Menon at bedside Objective Vitals/I&O Vital Signs Date Time Temp Pulse Resp B/P (MAP) Pulse Ox O2 Delivery O2 Flow Rate FiO2 04/11/17 08:00 97.5 86 16 150/80 (103) 95 04/07/17 08:21 Nasal Cannula 3.00 Labs Laboratory Tests Test 04/11/17 05:20 Blood Urea Nitrogen 4 Creatinine 0.53 Random Glucose 103 Calcium Level 8.3 Sodium Level 141 Potassium Level 4.1 Chloride Level 108 Carbon Dioxide Level 28.7 Anion Gap 4 Estimat Glomerular Filtration Rate 110 Date/Time Source Procedure Growth Status 04/02/17 04:30 Urine Catheterized Urine Urine Culture - Final NO GROWTH IN 48 HOURS. Complete Radiology Last Impressions Chest X-Ray 04/06/17 0000 Signed Impressions: Service Date/Time: March 15:58 - CONCLUSION: 1. Minimal bibasilar streakiness consistent with atelectasis and/or mild developing infiltrates. 2. Cardiomegaly. 3. Degenerative changes and scoliosis of the thoracic spine. Tim Gomez MD Abdomen X-Ray 04/05/17 0000 Signed Impressions: Service Date/Time: Wednesday, April 05, 2017 14:11 - CONCLUSION: 1. No dilated loops of small or large bowel. 2. Probable right pleural effusion. Jeovanny Walters MD Abdomen/Pelvis CT 04/04/17 0000 Signed Impressions: Service Date/Time: Tuesday, April 04, 2017 22:28 - CONCLUSION: 1. Interval development of fluid-filled diffusely distended small bowel with transition point in the right lower quadrant in the distal ileum. No evidence for bowel infarction or perforation at this time. Findings are most consistent with developing small bowel obstruction versus developing moderate to severe adynamic ileus. 2. Interval development of small bilateral, right greater then left, pleural effusions and trace ascites. Wai Ontiveros MD Cardiovascular: Regular Lungs: Clear Abdomen: Non-distended, Non-tender, Other (lap sites c/d/i; ) Extremities: No edema A/P Problem List: (1) Status post laparoscopic procedure ICD Codes: Z98.890 - Other specified postprocedural states Permanent Comment: Patient had a laparoscopic lysis of adhesions Last Edited By: Efra Stringer on Apr 09, 2017 11:07 (2) Adynamic ileus ICD Codes: K56.0 - Paralytic ileus (3) Small bowel obstruction, partial ICD Codes: K56.69 - Other intestinal obstruction Assessment and Plan 86 year old female with abdominal pain; POD5 lap MARTITA -Regular diet -OOB; PT consult -Pain controlled -Okay to shower; no baths -GS clear for DC; Follow up next Monday -Discussed with Dr. Juarez Attending Note - Dr. Syed Wounds clean and dry Tolerating diet The exam, history, and the medical decision-making described in the above note were completed with the assistance of the mid-level provider. I reviewed and agree with the findings presented. I attest that I had a [id number] encounter with the patient on the same day, and personally performed and documented my assessment and findings in the medical record. Sindy Bernal Apr 11, 2017 10:33 Nestor Syed MD Apr 18, 2017 12:14
== END 2017-04-11 12:30 | disposition home or self-care (01) | DRG 337 ==
LOC: NEPE 04:19 → NEDA 06:23 → N05B 08:37 → N03B 04-06 15:36 → N03A 04-06 20:27 → N07A 04-07 11:02
PROVIDERS: ADMIT Hospitalist; ATTEND Hospitalist
PROC: 0DN84ZZ Release Small Intestine, Percutaneous Endoscopic Approach (ICD-10-PCS; principal; 2017-04-06 13:42)
DX: K56.5 Intestinal adhesions [bands] with obstruction (postinfection) (principal); I10 Essential (primary) hypertension; E03.9 Hypothyroidism, unspecified; E78.5 Hyperlipidemia, unspecified; H40.9 Unspecified glaucoma; E87.6 Hypokalemia; R73.9 Hyperglycemia, unspecified; D72.829 Elevated white blood cell count, unspecified; K52.9 Noninfective gastroenteritis and colitis, unspecified; R60.0 Localized edema; K56.0 Paralytic ileus; Z88.1 Allergy status to other antibiotic agents; Z88.0 Allergy status to penicillin; Z88.8 Allergy status to other drugs, medicaments and biological substances
CPT/HCPCS: 71010; 74020; 74176; 74177; 76937; 80048; 80053; 81001; 83036; 83605; 83690; 84155; 84443; 85025; 85379; 86850; 86900; 86901; 87086; 87641; 93005; 96361; 96374; 96375; J0131; J0744; J1170; J1644; J2270; J2370; J2405; J2710; J3010; J3480; J7030; J7120; Q9967